=== PATIENT | female | born 1990 | race Caucasian/White ===

== ENCOUNTER → 2016-11-17 | Outpatient (CLI) | payer MEDICARE, OTHER ==
[2016-04-23 11:38] VITALS: BP 116/75
[~2016-11-17] MED LIST: ACET500T68 PO; BENZ1TAB5 PO; CA/D1TAB PO; CETI10TA16 PO; CIPR500T94 PO; CONTRAST GIVEN MC PRN; DIVA500T9 PO; ESOM40CA PO; FLUT1DIS3 IH; HALO5VIA2 IJ; HYDR25TA PO; IBUP-1007 PO; IBUP100O24 PO; IMIP25TA35 PO; INSU100I11 SQ; INSU100I13 SQ; INSU100I17 SQ; IOHEXOL 240 MG/ML 50ML VIAL. IV ONE; IOHEXOL 240 MG/ML 50ML VIAL. PO ONE; IOHEXOL 300 MG/ML 100ML VIAL. IV ONE; METF-620 PO; MIRT30TA3 PO; MONT10TA9 PO; MUPI22OI2 TP; NAPR250T2 PO; ONDA4TAB10 SL; RISP2TAB3 PO; RISP3TAB3 PO; SIMV10TA3 PO; SULF1TAB23 PO; ZOLP10TA4 PO
--- NOTE | 2016-11-17 12:17 | KCIC ---
CT scan of the abdomen and pelvis with contrast 11/17/2016 CLINICAL HISTORY: Abdominal pain with nausea and vomiting. Technique: After the oral and intravenous administration of contrast, contiguous, 5 mm axial sections were obtained through the abdomen and pelvis. 95 cc of Omnipaque 300 were administered intravenously during this examination. One or more of the following individualized dose reduction techniques were utilized for this study: 1. Automated exposure control. 2. Adjustment of the mA and/or kV according to patient size. 3. Use of iterative reconstruction technique. FINDINGS: Comparison is made to an Acute Abdominal Series dated 04/23/2016 Images through the lung bases demonstrate minimal dependent subsegmental atelectasis bilaterally. There are minimal bilateral pleural effusions, left greater than right. The liver parenchyma has a decreased attenuation consistent with mild fatty infiltration. The spleen, pancreas, adrenal glands and kidneys are within normal limits. The abdominal aorta tapers normally. Surgical clips are seen within the gallbladder fossa consistent with a cholecystectomy. Air and stool is seen throughout the colon. The appendix is well-visualized and is within normal limits. There is a small fat-containing umbilical hernia. This measures 2 cm in size. Images through the pelvis demonstrate the urinary bladder distended with urine. An oval-shaped low-attenuation structure is seen in the left adnexa which measures 3.6 cm in greatest diameter. This may represent a left ovarian cyst. Calcifications are seen within the pelvis consistent with phleboliths. No free fluid is seen. Minimal S-shaped curvature of the thoracolumbar spine is noted. IMPRESSION: 1. Minimal bilateral pleural effusions, left greater than right. 2. 3.6 cm oval-shaped low-attenuation structure is seen in the left adnexa which may represent a left ovarian cyst. This could be further evaluated by pelvic ultrasound if clinically warranted. Electronically signed by: Alex Santizo MD (11/17/2016 12:14 PM)
== END | disposition home or self-care (01) ==
LOC: KCIC CT 08:10
PROVIDERS: ATTEND Internal Medicine Gastroenterology
DX: R10.9 Unspecified abdominal pain (principal); J90 Pleural effusion, not elsewhere classified; R11.2 Nausea with vomiting, unspecified
CPT/HCPCS: 74177; 82565; Q9966; Q9967

== ENCOUNTER 2016-11-25 10:59 | Emergency (ER) | payer MEDICARE, OTHER ==
[~2016-11-25] VITALS: Ht 160 cm; Wt 78.0 kg
[~2016-11-25 10:59] MED LIST changes: -CONTRAST GIVEN MC PRN; -IOHEXOL 240 MG/ML 50ML VIAL. IV ONE; -IOHEXOL 240 MG/ML 50ML VIAL. PO ONE; -IOHEXOL 300 MG/ML 100ML VIAL. IV ONE
[2016-11-25] MEDS ORDERED: KETOROLAC TROMETHAMINE 30 MG/ML INJ. IV ONE (11:15)
[2016-11-25] MEDS ORDERED: fentaNYL PF VIAL 100 MCG/2 ML VIAL IV ONE (11:15)
[2016-11-25] MEDS ORDERED: ONDANSETRON PF 4 MG/2 ML VIAL. IV ONE (11:15)
[2016-11-25] MEDS ORDERED: IV NORMAL SALINE 1000ML BAG 1,000 ML IV ONE ×2 (11:15→14:00)
[2016-11-25 11:43] LABS: BILIRUBIN,URINE NEGATIVE (NEG); GLUCOSE,URINE NEGATIVE (NEG); NITRITE,URINE NEGATIVE (NEG); PROTEIN,URINE NEGATIVE (NEG-TRACE); UROBILINOGEN,URINE 0.2 mg/dL (0.2 mg/dL)
[2016-11-25 11:56] LABS: BACTERIA,URINE 0 /HPF (0-FEW); RBC,URINE 0 /HPF (0-2); SQUAMOUS EPITHELIAL CELL,UR FEW /LPF
--- NOTE | 2016-11-25 11:57 | PHYS DOC ---
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 Abdominal pain is diffuse and crampy possibly worse in her lower quadrants. The abdominal pain has been going on for 1 week straight where as the nausea vomiting and dysuria has been going on for the past 2 days. She had fever up to 101 at home and took Tylenol yesterday but nothing for pain this morning. Patient denies any prior abdominal surgeries. She denies any vaginal bleeding vaginal discharge. She is in no obvious distress. Review of Systems Review of Systems Constitutional: + fever, chills [] Eyes: Denies change in visual acuity, redness, or eye pain [] HENT: Denies nasal congestion or sore throat [] Respiratory: Denies cough or shortness of breath [] Cardiovascular: No additional information not addressed in HPI [] GI: + abdominal pain, nausea, vomiting, diarrhea [] : Denies dysuria or hematuria [] Musculoskeletal: + back pain. No joint pain [] Integument: Denies rash or skin lesions [] Neurologic: Denies headache, focal weakness or sensory changes [] Current Medications Current Medications Current Medications Medications (Trade) Dose Ordered Sig/Meena Start Time Stop Time Status Last Admin Dose Admin Acetaminophen/ Hydrocodone Bitart (Lortab 5/325) 2 tab 1X ONCE 11/25/16 14:00 11/25/16 14:01 DC Fentanyl Citrate (Fentanyl 2ml Vial) 50 mcg 1X ONCE 11/25/16 11:15 11/25/16 11:20 DC 11/25/16 12:16 50 MCG Iohexol (Omnipaque 300 Mg/ml) 75 ml 1X ONCE 11/25/16 12:00 11/25/16 12:01 DC Ketorolac Tromethamine (Toradol) 30 mg 1X ONCE 11/25/16 11:15 11/25/16 11:20 DC 11/25/16 12:16 30 MG Ondansetron HCl (Zofran) 8 mg 1X ONCE 11/25/16 11:15 11/25/16 11:20 DC 11/25/16 12:16 8 MG Sodium Chloride 1,000 ml @ 1,000 mls/hr 1X ONCE 11/25/16 14:00 11/25/16 14:59 Allergies Allergies Allergies Coded Allergies Type Severity Reaction Last Updated Verified Penicillins Allergy Intermediate 01/09/16 Yes iodine Allergy Intermediate 01/09/16 Yes shellfish derived Allergy Intermediate 01/09/16 Yes Physical Exam Physical Exam Constitutional: Well developed, well nourished, no acute distress, non-toxic appearance. [] HENT: Normocephalic, atraumatic, bilateral external ears normal, oropharynx moist, no oral exudates, nose normal. [] Eyes: PERRLA, EOMI, conjunctiva normal, no discharge. [] Neck: Normal range of motion, no tenderness, supple, no stridor. [] Cardiovascular:Heart rate tachycardic with regular rhythm, no murmur [] Lungs & Thorax: Bilateral breath sounds clear to auscultation [] Abdomen: Bowel sounds normal, soft, positive diffuse tenderness with no rebound or guarding, no masses, no pulsatile masses. [employer] [facility]: No abnormal bleeding or discharge but there is left adnexal tenderness to palpation. Skin: Warm, dry, no erythema, no rash. [] Back: positive left CVA tenderness. [] Extremities: No tenderness, no cyanosis, no clubbing, ROM intact, no edema. [] Neurologic: Alert and oriented X 3, normal motor function, normal sensory function, no focal deficits noted. [] Current Patient Data Vital Signs Vital Signs Date Time Temp Pulse Resp B/P (MAP) Pulse Ox O2 Delivery O2 Flow Rate FiO2 11/25/16 12:51 97 133/75 (94) 96 Room Air 11/25/16 11:07 99.2 18 99.2 Lab Values Laboratory Tests Test 11/25/16 10:26 11/25/16 11:25 11/25/16 12:00 POC Urine HCG, Qualitative Hcg negative (Negative) Urine Collection Type Void Urine Color Yellow Urine Clarity Clear Urine pH 7.0 Urine Specific [place] 1.015 Urine Protein Negative mg/dL (NEG-TRACE) Urine Glucose (UA) Negative mg/dL (NEG) Urine Ketones (Stick) Negative mg/dL (NEG) Urine Blood Negative (NEG) Urine Nitrite Negative (NEG) Urine Bilirubin Negative (NEG) Urine Urobilinogen Dipstick 0.2 mg/dL (0.2 mg/dL) Urine Leukocyte Esterase Moderate (NEG) Urine RBC 0 /HPF (0-2) Urine WBC 1-4 /HPF (0-4) Urine Squamous Epithelial Cells Few /LPF Urine Bacteria 0 /HPF (0-FEW) White Blood Count 8.5 x10^3/uL (4.0-11.0) Red Blood Count 4.75 x10^6/uL (3.50-5.40) Hemoglobin 13.1 g/dL (12.0-15.5) Hematocrit 40.1 % (36.0-47.0) Mean Corpuscular Volume 84 fL (79-100) Mean Corpuscular Hemoglobin 28 pg (25-35) Mean Corpuscular Hemoglobin Concent 33 g/dL (31-37) Red Cell Distribution Width 16.1 % (11.5-14.5) H Platelet Count 257 x10^3/uL (140-400) Neutrophils (%) (Auto) 57 % (31-73) Lymphocytes (%) (Auto) 37 % (24-48) Monocytes (%) (Auto) 5 % (0-9) Eosinophils (%) (Auto) 0 % (0-3) Basophils (%) (Auto) 1 % (0-3) Neutrophils # (Auto) 4.8 x10^3uL (1.8-7.7) Lymphocytes # (Auto) 3.2 x10^3/uL (1.0-4.8) Monocytes # (Auto) 0.4 x10^3/uL (0.0-1.1) Eosinophils # (Auto) 0.0 x10^3/uL (0.0-0.7) Basophils # (Auto) 0.1 x10^3/uL (0.0-0.2) Sodium Level 143 mmol/L (136-145) Potassium Level 4.8 mmol/L (3.5-5.1) Chloride Level 107 mmol/L (98-107) Carbon Dioxide Level 24 mmol/L (21-32) Anion Gap 12 (6-14) Blood Urea Nitrogen 8 mg/dL (7-20) Creatinine 0.6 mg/dL (0.6-1.0) Estimated GFR (Cockcroft-Gault) 120.8 BUN/Creatinine Ratio 13 (6-20) Glucose Level 96 mg/dL (70-99) Calcium Level 8.7 mg/dL (8.5-10.1) Total Bilirubin 0.2 mg/dL (0.2-1.0) Aspartate Amino Transferase (AST) 27 U/L (15-37) Alanine Aminotransferase (ALT) 39 U/L (14-59) Alkaline Phosphatase 110 U/L (46-116) Total Protein 8.0 g/dL (6.4-8.2) Albumin 4.1 g/dL (3.4-5.0) Albumin/Globulin Ratio 1.1 (1.0-1.7) Lipase 100 U/L (73-393) Laboratory Tests 11/25/16 12:00 Laboratory Tests 11/25/16 12:00 Microbiology 11/25/16 Wet Prep - Final, Complete EKG EKG [] Radiology/Procedures Radiology/Procedures Examination: CT of the abdomen pelvis without contrast History: History of bilateral lower abdominal pain Comparison: 11/17/2016 Technique: Axial CT images of the abdomen pelvis were performed without contrast. Coronal and sagittal reformats are performed PQRS Compliance Statement: One or more of the following individualized dose reduction techniques were utilized for this examination: 1. Automated exposure control 2. Adjustment of the mA and/or kV according to patient size 3. Use of iterative reconstruction technique reduction Findings: The visualized bibasal lungs grossly appears unremarkable. The evaluation of the solid organs is limited due to lack of IV contrast. The evaluation of bowel is limited lack of oral contrast. The visualized noncontrasted liver, spleen, adrenals grossly appears unremarkable. Cholecystectomy clips are identified. The visualized pancreas grossly appears unremarkable. The stomach is mildly distended. The small bowel is nondilated. No evidence of intrahepatic system calculi or hydronephrosis identified. The appendix is normal. Feces and gas noted in the colon. Urinary bladder is mildly distended. There is mild prominence the left adnexa could be distended left fallopian tube or left adnexal lesion measuring 3.6 x 3.3 cm. The urinary bladder is mildly distended. The caliber of the aorta grossly appears unremarkable. No evidence of lytic bony destructive lesion. Impression: 1. No evidence of intrarenal collecting system calculi. 2. Prominent bilobed appearance in the left adnexa measuring 3.6x 3.3 cm could be distended fallopian tube or left ovarian lesion. Ultrasound pelvis follow-up can be considered. DICTATED and SIGNED BY: MATTHIEU KIM MD DATE: 11/25/16 6054 Examination: Ultrasound pelvis History: History of abdominal pain Comparison: None available Technique: Transabdominal ultrasound examination of the pelvis. Findings: The uterus measures 5.5 x 2.5 x 3.8 cm. The endometrium is not well defined and not clearly identified. The right ovary is not visualized. In the left adnexa, there is a 5.0 x 3.7 x 5.0 cm complex cystic appearing structure which could be left adnexal or ovarian mass or lesion. Impression: 1. Limited examination as transvaginal ultrasound examination could not be performed as patient or the warehouse shipping supervisor could not consent for it. 2. There is a 5.0 x 3.7 x 5.0 cm complex cystic appearing structure identified in the left adnexa could be left adnexal or ovarian cyst or cystic lesion. Characterization is difficult. DICTATED and SIGNED BY: MATTHIEU KIM MD DATE: 11/25/16 5342 Course & Med Decision Making Course & Med Decision Making Will check labs CT treat symptoms and reassess. CT showed abnormal fallopian or ovarian mass I spoke with Dr. Wasserman and he recommended pelvic ultrasound and if hydrosalpinx lately outpatient treatment. I spoke to the radiologist as it did not mention anything about flow on the ultrasound report. I spoke to him and he said that it appears that there was flow although it was more difficult to see on transabdominal versus transvaginal but patient did not consent to transvaginal exam. But based off or he could see on the transabdominal he believes there is flow within the left ovary. I spoke to Dr. Wasserman again and he said that outpatient treatment for an ovarian cyst is reasonable at this time. She will be discharged with instruction take 400 mg of ibuprofen every 6 hours and the [place] for breakthrough pain and follow with the [employer] [facility] as an outpatient. Patient and caregiver aware and agreeable with plan. Dragon Disclaimer Dragon Disclaimer This electronic medical record was generated, in whole or in part, using a voice recognition dictation system. Departure Departure Impression: Primary Impression: Lower abdominal pain Additional Impression: Ovarian cyst Disposition: 01 HOME, SELF-CARE Condition: GOOD Referrals: LOKI WASSERMAN Jr, MD Patient Instructions: Ovarian Cyst Additional Instructions: Take 400 mg of ibuprofen every 6 hours and the [place] for breakthrough pain. Follow with a [facility] [employer] [facility] as an outpatient 2-3 days. Scripts Ondansetron (ZOFRAN ODT) 4 Mg Tab.rapdis 4 MG PO BID Y for NAUSEA/VOMITING for 10 Days, #20 TAB Prov: FARNAZ MONTILLA DO 11/25/16 Hydrocodone/Apap 5-325 (NORCO 5-325 TABLET) 1 Each Tablet 1 TAB PO PRN Q6HRS Y for PAIN, #20 TAB 0 Refills Prov: FARNAZ MONTILLA DO 11/25/16 Problem Qualifiers FARNAZ MONTILLA DO Nov 25, 2016 11:57
[2016-11-25] MEDS ORDERED: IOHEXOL 300 MG/ML 75 ML VIAL IV ONE (12:00)
[2016-11-25 12:30] LABS: BASO # 0.1 x10^3/uL (0.0-0.2); BASO % 1 % (0-3); EOS % 0 % (0-3); HEMATOCRIT 40.1 % (36.0-47.0); HEMOGLOBIN 13.1 g/dL (12.0-15.5); LYMPH # 3.2 x10^3/uL (1.0-4.8); LYMPH % 37 % (24-48); MEAN CORPUSCULAR HEMOGLOBIN 28 pg (25-35); MEAN CORPUSCULAR HGB CONC 33 g/dL (31-37); MEAN CORPUSCULAR VOLUME 84 fL (79-100); MONO % 5 % (0-9); NEUT % 57 % (31-73); PLATELET COUNT 257 x10^3/uL (140-400); RED BLOOD COUNT 4.75 x10^6/uL (3.50-5.40); RED CELL DISTRIBUTION WIDTH 16.1 % (11.5-14.5); WHITE BLOOD COUNT 8.5 x10^3/uL (4.0-11.0)
[2016-11-25 12:40] LABS: CALCIUM 8.7 mg/dL (8.5-10.1); CREATININE 0.6 mg/dL (0.6-1.0); GFR 120.8; POTASSIUM 4.8 mmol/L (3.5-5.1)
[2016-11-25 12:48] LABS: ALBUMIN 4.1 g/dL (3.4-5.0); ALBUMIN/GLOBULIN RATIO 1.1 (1.0-1.7); TOTAL BILIRUBIN 0.2 mg/dL (0.2-1.0)
--- NOTE | 2016-11-25 13:08 | RAD ---
Examination: CT of the abdomen pelvis without contrast History: History of bilateral lower abdominal pain Comparison: 11/17/2016 Technique: Axial CT images of the abdomen pelvis were performed without contrast. Coronal and sagittal reformats are performed RS Compliance Statement: One or more of the following individualized dose reduction techniques were utilized for this examination: 1. Automated exposure control 2. Adjustment of the mA and/or kV according to patient size 3. Use of iterative reconstruction technique reduction Findings: The visualized bibasal lungs grossly appears unremarkable. The evaluation of the solid organs is limited due to lack of IV contrast. The evaluation of bowel is limited lack of oral contrast. The visualized noncontrasted liver, spleen, adrenals grossly appears unremarkable. Cholecystectomy clips are identified. The visualized pancreas grossly appears unremarkable. The stomach is mildly distended. The small bowel is nondilated. No evidence of intrahepatic system calculi or hydronephrosis identified. The appendix is normal. Feces and gas noted in the colon. Urinary bladder is mildly distended. There is mild prominence the left adnexa could be distended left fallopian tube or left adnexal lesion measuring 3.6 x 3.3 cm. The urinary bladder is mildly distended. The caliber of the aorta grossly appears unremarkable. No evidence of lytic bony destructive lesion. Impression: 1. No evidence of intrarenal collecting system calculi. 2. Prominent bilobed appearance in the left adnexa measuring 3.6x 3.3 cm could be distended fallopian tube or left ovarian lesion. Ultrasound pelvis follow-up can be considered.
[2016-11-25 13:51] VITALS: BP 133/69
[2016-11-25] MEDS ORDERED: HYDROcodone/APAP 5/325MG 1 TAB TABLET PO ONE (14:00)
--- NOTE | 2016-11-25 14:30 | RAD ---
Examination: Ultrasound pelvis History: History of abdominal pain Comparison: None available Technique: Transabdominal ultrasound examination of the pelvis. Findings: The uterus measures 5.5 x 2.5 x 3.8 cm. The endometrium is not well defined and not clearly identified. The right ovary is not visualized. In the left adnexa, there is a 5.0 x 3.7 x 5.0 cm complex cystic appearing structure which could be left adnexal or ovarian mass or lesion. Impression: 1. Limited examination as transvaginal ultrasound examination could not be performed as patient or the audio production engineer could not consent for it. 2. There is a 5.0 x 3.7 x 5.0 cm complex cystic appearing structure identified in the left adnexa could be left adnexal or ovarian cyst or cystic lesion. Characterization is difficult.
[2016-11-25] MEDS ORDERED: HYDR-971 PO (14:46)
[2016-11-25] MEDS ORDERED: ONDA4TAB10 PO (14:46)
== END 2016-11-25 15:21 | disposition home or self-care (01) ==
LOC: ER 10:59
DX: N83.202 Unspecified ovarian cyst, left side (principal); E11.9 Type 2 diabetes mellitus without complications; J45.909 Unspecified asthma, uncomplicated; F31.9 Bipolar disorder, unspecified; Z87.11 Personal history of peptic ulcer disease; F25.9 Schizoaffective disorder, unspecified; Z87.442 Personal history of urinary calculi; Z90.49 Acquired absence of other specified parts of digestive tract; Z88.0 Allergy status to penicillin; Z91.041 Radiographic dye allergy status; Z91.013 Allergy to seafood
CPT/HCPCS: 36415; 74176; 76856; 80053; 81001; 81025; 83690; 85027; 87086; 87491; 87591; 96361; 96374; 96375; 99285; C1887; J1885; J2405; J3010; J7030; Q0111

== ENCOUNTER → 2017-04-02 | Outpatient (CLI) | payer MEDICARE, OTHER ==
[2017-02-12 10:49] VITALS: BP 128/87
[~2017-04-02] MED LIST changes: +BACL10TA PO; +BENZ0.5T PO; +CALC-534 PO; +CIPR250T30 PO; +DICY10CA53 PO; +DIVA125C PO; +DOCU-109 PO; +DULA1.5P SQ; +FLUT16SP NS; +GABA600T2 PO; +GLYB5TAB3 PO; +HYDR-2758 PO; +HYDR-971 PO; +INSU100V13 SQ; +KETO5DRO4 EACHEYE; +LITH300C PO; +LITH300T30 PO; +LORA2TAB PO; +MIRT45TA PO; +MONT10TA6 PO; +MULT1TAB44 PO; -NAPR250T2 PO; +NAPR250T6 PO; +NAPR500T4 PO; +OLOP2.5D EACHEYE; +ONDA4TAB10 PO; +ONDA4TAB7 PO; +PALI6TAB3 PO; +PANT40TA3 PO; +PROAIR HFA8.5 GM INH; +SIMV20TA PO; +SITA100T PO; +TOPI100T8 PO; +TRAZ150T49 PO; +VENTOLIN HFA18 GM INH; +[UNRECOGNIZED DRUG - CODE] TP
--- NOTE | 2017-04-02 14:44 | KCIC ---
PELVIS COMPLETE History: Left ovarian cyst Comparison: November 17, 2016 CT exam Findings: Multiple transabdominal sonographic images of the pelvis are submitted. Endometrium measured 0.2 cm. Uterus measured 5.9 x 3 x 4 cm. Right ovary measured 2.4 x 1.4 x 1.9 cm. Left ovary measured 4.4 x 4.8 x 3.5 cm. There is a hypoechoic lesion of left ovary on the order of 3.3 x 3 x 2 cm. There is another hypoechoic lesion of the left ovary 2 x 2.2 x 2 cm. There is normal low resistance vascularity of the ovaries bilaterally. No significant free fluid is demonstrated. Impression: 1. There are 2 left ovarian cysts, largest up to 3.3 cm. There is no free fluid. Electronically signed by: Luis Garcia MD (04/02/2017 2:41 PM) [id number]
== END | disposition home or self-care (01) ==
LOC: KCIC US 13:06
PROVIDERS: ATTEND Family Medicine
DX: N83.202 Unspecified ovarian cyst, left side (principal)
CPT/HCPCS: 76856

== ENCOUNTER → 2017-08-16 | Outpatient (CLI) | payer MEDICARE, OTHER | END | disposition home or self-care (01) | LOC: RAD 16:29 | DX: S69.92XD Unspecified injury of left wrist, hand and finger(s), subsequent encounter (principal); X58.XXXD Exposure to other specified factors, subsequent encounter | CPT/HCPCS: 73140 ==

== ENCOUNTER 2018-01-12 10:20 | Inpatient (IN) | payer MEDICARE, OTHER ==
[~2018-01-12] VITALS: Ht 157.5 cm; Wt 73.7 kg
[~2018-01-12 10:20] MED LIST changes: -BENZ0.5T PO; +BENZ0.5T32 PO; +CANA100T PO; +CHLO200T2 PO; +DIVA-53 PO; -DIVA125C PO; +DIVA125C2 PO; -DIVA500T9 PO; -IBUP100O24 PO; +IBUP100O25 PO; +INSU100C SQ; +INSU100I32 SQ; -METF-620 PO; +METF10007 PO; +NAPR-514 PO; -NAPR500T4 PO
[2018-01-12] MEDS ORDERED: ACETAMINOPHEN 500 MG TABLET PO ONE (10:45)
[2018-01-12] MEDS ORDERED: IV NORMAL SALINE 1000ML BAG 1,000 ML IV ONE ×2 (10:45→11:30)
[2018-01-12 11:02] LABS: BASO % 0 % (0-3); EOS % 0 % (0-3); HEMOGLOBIN 12.6 g/dL (12.0-15.5); LYMPH # 1.5 x10^3/uL (1.0-4.8); LYMPH % 23 % (24-48); MEAN CORPUSCULAR HEMOGLOBIN 29 pg (25-35); MEAN CORPUSCULAR HGB CONC 33 g/dL (31-37); MEAN CORPUSCULAR VOLUME 88 fL (79-100); MONO # 0.4 x10^3/uL (0.0-1.1); MONO % 6 % (0-9); NEUT # 4.6 x10^3uL (1.8-7.7); NEUT % 71 % (31-73); PLATELET COUNT 246 x10^3/uL (140-400); RED BLOOD COUNT 4.32 x10^6/uL (3.50-5.40); RED CELL DISTRIBUTION WIDTH 14.7 % (11.5-14.5); WHITE BLOOD COUNT 6.5 x10^3/uL (4.0-11.0)
[2018-01-12 11:03] LABS: BILIRUBIN,URINE NEGATIVE (NEG); CLARITY,URINE CLEAR; COLOR,URINE YELLOW; NITRITE,URINE NEGATIVE (NEG); PH,URINE 6.5; PROTEIN,URINE NEGATIVE (NEG-TRACE); UROBILINOGEN,URINE 0.2 mg/dL (0.2 mg/dL)
[2018-01-12 11:15] LABS: ALBUMIN 3.7 g/dL (3.4-5.0); ALBUMIN/GLOBULIN RATIO 1.1 (1.0-1.7); CALCIUM 8.9 mg/dL (8.5-10.1); CREATININE 0.9 mg/dL (0.6-1.0); GFR 75.1; MAGNESIUM 1.8 mg/dL (1.8-2.4); POTASSIUM 4.7 mmol/L (3.5-5.1); TOTAL BILIRUBIN 0.2 mg/dL (0.2-1.0); TOTAL PROTEIN 7.2 g/dL (6.4-8.2)
[2018-01-12 11:17] LABS: SQUAMOUS EPITHELIAL CELL,UR FEW /LPF
[2018-01-12 11:18] LABS: BACTERIA,URINE FEW /HPF (0-FEW); RBC,URINE 0 /HPF (0-2); WBC,URINE OCC /HPF (0-4)
[2018-01-12] MEDS ORDERED: INSULIN REGULAR 100 UNIT/ML 3ML VIAL. IV ONE (11:30)
[2018-01-12] MEDS ORDERED: fentaNYL PF VIAL 100 MCG/2 ML VIAL IV ONE (12:15)
--- NOTE | 2018-01-12 12:22 | RAD ---
EXAM: Chest, single view. HISTORY: Fever. COMPARISON: 04/03/2016. FINDINGS: A frontal view of the chest is obtained. There is no infiltrate, pleural effusion or pneumothorax. The heart is normal in size. IMPRESSION: No acute pulmonary finding. Electronically signed by: Nga Marc MD (01/12/2018 12:19 PM) [facility]
--- NOTE | 2018-01-12 12:55 | RAD ---
CT abdomen pelvis without intravenous contrast History: Right abdominal pain. Evaluate appendix. Comparison: CT abdomen pelvis February 11, 2017. Technique: CT of the abdomen and pelvis was performed without intravenous or oral contrast. Exposure: One or more of the following individualized dose reduction techniques were utilized for this examination: 1. Automated exposure control 2. Adjustment of the mA and/or kV according to patient size 3. Use of iterative reconstruction technique Findings: Evaluation of solid organs is limited by lack of intravenous contrast. Evaluation of enteric structures may be limited by lack of oral contrast. Liver, spleen, pancreas, and bilateral adrenal glands unremarkable. Gallbladder is absent. Inferior pole of the left kidney demonstrates 2 mm nonobstructive nephrolith. Both ureters are free of stone or obstruction. No bowel obstruction or inflammation is seen. Appendix disease is without evidence of inflammation. Urinary bladder is unremarkable. Uterus demonstrates exophytic leiomyoma. No free air or significant free fluid is seen in the abdomen or pelvis. Impression: 1. No acute abnormality identified in the abdomen or pelvis. 2. Nonobstructive left nephrolith. 3. Uterine leiomyoma. Electronically signed by: Dallin Engle MD (01/12/2018 12:52 PM) [facility] [place]
[2018-01-12] MEDS: IV NORMAL SALINE 1000ML BAG 1,000 ML IV SCH ×2 (13:45→19:39)
[2018-01-12 13:57] VITALS: BP 111/77
[2018-01-12 15:00] VITALS: BP 121/81
[2018-01-12] MEDS ORDERED: CICL6.6S TP (15:07)
[2018-01-12] MEDS ORDERED: GLIM2TAB2 PO (15:07)
[2018-01-12] MEDS ORDERED: SOD28CRE TP (15:07)
[2018-01-12] MEDS ORDERED: VENTOLIN HFA18 GM INH (15:07)
[2018-01-12] MEDS ORDERED: CHLO100T6 PO (15:07)
[2018-01-12] MEDS ORDERED: POLY17PO29 PO (15:07)
[2018-01-12] MEDS ORDERED: OMEG1CAP6 PO ×2 (15:07)
[2018-01-12] MEDS ORDERED: HYDROcodone/APAP 7.5/325MG 1 TAB TABLET PO PRN ×2 (15:30→15:45)
--- NOTE | 2018-01-12 17:35 | PHYS DOC ---
Past Medical History Past Medical History: Asthma, Bipolar, Diabetes-Type I, Kidney Stone, P.U.D., Other Additional Past Medical Histor: schizoaffective disorder, OVARIAN CYSTS Past Surgical History: Cholecystectomy, Other Additional Past Surgical Histo: kidney stone , pen removal from intestines Alcohol Use: None Drug Use: None Adult General Chief Complaint Chief Complaint: HYPERGLYCEMIA HPI HPI Patient is a 27 year old brought in from a assisted with a chief complaint of high blood sugar was 515 despite insulin regimen which included 80 mg of long- term insulin in the morning as well as sliding scale they do not have the MAR with him Patient states that she has had subjective fevers sore throat dry cough as well as some right-sided abdominal pain for the last week apparently abdominal pain is much worse over the last day she is nauseous denies any dysuria she is just not feeling well feels weak. Review of Systems Review of Systems Eyes: Denies change in visual acuity, redness, or eye pain [] HENT: Denies nasal congestion or sore throat [] Respiratory: Denies cough or shortness of breath [] Cardiovascular: No additional information not addressed in HPI [] GI: hpi Musculoskeletal: Denies back pain or joint pain [] All other systems were reviewed and found to be within normal limits, except as documented in this note. Current Medications Current Medications Current Medications Medications (Trade) Dose Ordered Sig/Meena Start Time Stop Time Status Last Admin Dose Admin Acetaminophen (Tylenol) 1,000 mg 1X ONCE 01/12/18 10:45 01/12/18 10:46 DC 01/12/18 11:07 1,000 MG Fentanyl Citrate (Fentanyl 2ml Vial) 50 mcg 1X ONCE 01/12/18 12:15 01/12/18 12:16 DC 01/12/18 12:06 50 MCG Insulin Human Regular (HumuLIN R VIAL) 10 unit 1X ONCE 01/12/18 11:30 01/12/18 11:31 DC 01/12/18 11:30 10 UNIT Sodium Chloride 1,000 ml @ 1,000 mls/hr 1X ONCE 01/12/18 11:30 01/12/18 12:29 DC 01/12/18 12:06 1,000 MLS/HR Allergies Allergies Allergies Coded Allergies Type Severity Reaction Last Updated Verified Penicillins Allergy Intermediate 01/09/16 Yes iodine Allergy Intermediate 01/09/16 Yes shellfish derived Allergy Intermediate 01/09/16 Yes Physical Exam Physical Exam Constitutional: Well developed, well nourished, no acute distress, non-toxic appearance. [] HENT: Normocephalic, atraumatic, bilateral external ears normal, oropharynx dryt , no oral exudates, nose normal. [] Eyes: PERRLA, EOMI, conjunctiva normal, no discharge. [] Neck: Normal range of motion, no tenderness, supple, no stridor. [] Cardiovascular:Heart rate regular rhythm, no murmur [] Lungs & Thorax: Bilateral breath sounds clear to auscultation [] Abdomen: Bowel sounds normal, soft, rlq and right cva tenderness, no masses, no pulsatile masses. [] Skin: Warm, dry, no erythema, no rash. [] Back: right cva ttp Extremities: No tenderness, no cyanosis, no clubbing, ROM intact, no edema. [] Neurologic: Alert and oriented X 3, normal motor function, normal sensory function, no focal deficits noted. [] Psychologic: abnormal affect, blunted. Current Patient Data Vital Signs Vital Signs Date Time Temp Pulse Resp B/P (MAP) Pulse Ox O2 Delivery O2 Flow Rate FiO2 01/12/18 12:06 18 96 Room Air 01/12/18 12:00 110 144/91 (108) 01/12/18 10:56 99.3 99.3 Lab Values Laboratory Tests Test 01/12/18 10:20 01/12/18 10:55 Urine Collection Type Unknown Urine Color Yellow Urine Clarity Clear Urine pH 6.5 Urine Specific [place] 1.025 Urine Protein Negative mg/dL (NEG-TRACE) Urine Glucose (UA) >=1000 mg/dL (NEG) Urine Ketones (Stick) Negative mg/dL (NEG) Urine Blood Negative (NEG) Urine Nitrite Negative (NEG) Urine Bilirubin Negative (NEG) Urine Urobilinogen Dipstick 0.2 mg/dL (0.2 mg/dL) Urine Leukocyte Esterase Negative (NEG) Urine RBC 0 /HPF (0-2) Urine WBC Occ /HPF (0-4) Urine Squamous Epithelial Cells Few /LPF Urine Bacteria Few /HPF (0-FEW) White Blood Count 6.5 x10^3/uL (4.0-11.0) Red Blood Count 4.32 x10^6/uL (3.50-5.40) Hemoglobin 12.6 g/dL (12.0-15.5) Hematocrit 38.0 % (36.0-47.0) Mean Corpuscular Volume 88 fL (79-100) Mean Corpuscular Hemoglobin 29 pg (25-35) Mean Corpuscular Hemoglobin Concent 33 g/dL (31-37) Red Cell Distribution Width 14.7 % (11.5-14.5) H Platelet Count 246 x10^3/uL (140-400) Neutrophils (%) (Auto) 71 % (31-73) Lymphocytes (%) (Auto) 23 % (24-48) L Monocytes (%) (Auto) 6 % (0-9) Eosinophils (%) (Auto) 0 % (0-3) Basophils (%) (Auto) 0 % (0-3) Neutrophils # (Auto) 4.6 x10^3uL (1.8-7.7) Lymphocytes # (Auto) 1.5 x10^3/uL (1.0-4.8) Monocytes # (Auto) 0.4 x10^3/uL (0.0-1.1) Eosinophils # (Auto) 0.0 x10^3/uL (0.0-0.7) Basophils # (Auto) 0.0 x10^3/uL (0.0-0.2) Maternal Serum HCG Beta Subunit < 1 mIU/mL (0-5) Sodium Level 136 mmol/L (136-145) Potassium Level 4.7 mmol/L (3.5-5.1) Chloride Level 105 mmol/L (98-107) Carbon Dioxide Level 18 mmol/L (21-32) L Anion Gap 13 (6-14) Blood Urea Nitrogen 13 mg/dL (7-20) Creatinine 0.9 mg/dL (0.6-1.0) Estimated GFR (Cockcroft-Gault) 75.1 BUN/Creatinine Ratio 14 (6-20) Glucose Level 540 mg/dL (70-99) *H Calcium Level 8.9 mg/dL (8.5-10.1) Magnesium Level 1.8 mg/dL (1.8-2.4) Total Bilirubin 0.2 mg/dL (0.2-1.0) Aspartate Amino Transferase (AST) 16 U/L (15-37) Alanine Aminotransferase (ALT) 43 U/L (14-59) Alkaline Phosphatase 96 U/L (46-116) Total Protein 7.2 g/dL (6.4-8.2) Albumin 3.7 g/dL (3.4-5.0) Albumin/Globulin Ratio 1.1 (1.0-1.7) Lipase 264 U/L (73-393) Laboratory Tests 01/12/18 10:55 Laboratory Tests 01/12/18 10:55 EKG EKG [] Radiology/Procedures Radiology/Procedures [] Impressions: Evaluation of solid organs is limited by lack of intravenous contrast. Evaluation of enteric structures may be limited by lack of oral contrast. Liver, spleen, pancreas, and bilateral adrenal glands unremarkable. Gallbladder is absent. Inferior pole of the left kidney demonstrates 2 mm nonobstructive nephrolith. Both ureters are free of stone or obstruction. No bowel obstruction or inflammation is seen. Appendix disease is without evidence of inflammation. Urinary bladder is unremarkable. Uterus demonstrates exophytic leiomyoma. No free air or significant free fluid is seen in the abdomen or pelvis. Impression: 1. No acute abnormality identified in the abdomen or pelvis. 2. Nonobstructive left nephrolith. 3. Uterine leiomyoma. Electronically signed by: Dallin Engle MD (01/12/2018 12:52 PM) [facility] [place] Course & Med Decision Making Course & Med Decision Making Pertinent Labs and Imaging studies reviewed. (See chart for details) []27-year-old female presenting with poorly controlled blood sugars. She does live in some sort of a long-term. She was tachycardic to the 130s with low- grade fever we did an infectious workup and did not find a clear etiology perhaps she has a viral syndrome I have not yet seen a rapid strep. CT scan was negative for appendicitis she did have some right lower quadrant tenderness on examination but this is also happened to her in the past with hyperglycemia. Due to her social situation as well as the tachycardia and arrival of opted to admit her to the hospital for serial blood sugars and monitoring I spoke with Dr. carlton plan to admit. Jamel Disclaimer Dragon Disclaimer This electronic medical record was generated, in whole or in part, using a voice recognition dictation system. Departure Departure Impression: Primary Impression: Hyperglycemia Disposition: ADMITTED INPATIENT Admitting Physician: Other Condition: STABLE Referrals: ROBERTO WARREN MD (PCP) SRINIVASA LEZAMA MD Jan 12, 2018 17:35
[2018-01-12] MEDS: FLUTICASONE 50MCG/NASAL SPRAY 16GM BOTTLE. NS SCH (18:13)
[2018-01-12] MEDS: GLIMEPIRIDE 2 MG TABLET. PO SCH (18:13)
[2018-01-12] MEDS: CETIRIZINE HCL 10 MG TABLET. PO SCH (18:14)
[2018-01-12] MEDS: BACLOFEN 10 MG TABLET. PO SCH (18:14)
[2018-01-12] MEDS ORDERED: DICYCLOMINE HCL 10 MG CAPSULE PO PRN (18:15)
[2018-01-12] MEDS: ACETAMINOPHEN 500 MG TABLET PO PRN (18:37)
[2018-01-12 19:20] VITALS: BP 149/96
[2018-01-12] MEDS: OMEGA-3 FATTY ACIDS/FISH OIL 1,000 MG CAPSULE. PO SCH (20:18)
[2018-01-12] MEDS: GABAPENTIN 400 MG CAPSULE. PO SCH (20:18)
[2018-01-12] MEDS: TOPIRAMATE 100 MG TABLET. PO SCH (20:18)
[2018-01-12] MEDS: ALBUTEROL SULFATE 2.5 MG/3 ML NEBU. NEB SCH (20:42)
[2018-01-12] MEDS: BUDESONIDE 0.5 MG/2 ML NEBU. NEB SCH (20:42)
[2018-01-12] MEDS ORDERED: VITAMIN E TP SCH (21:00)
[2018-01-12] MEDS: AMMONIUM LACTATE 12% TOPICAL LOTION 226GM BOTTLE. TP SCH (21:00)
[2018-01-12] MEDS ORDERED: MONTELUKAST SODIUM 10 MG TABLET. PO SCH (21:00)
[2018-01-12] MEDS ORDERED: NON FORMULARY ITEM (Fluticasone/Salmeterol (Advair 250-50 Diskus) 1 INH) IH SCH (21:00)
[2018-01-12] MEDS ORDERED: [UNRECOGNIZED DRUG - OTHER] TP SCH (21:00)
[2018-01-12] MEDS ORDERED: LORazepam 1 MG TABLET PO SCH (21:00)
[2018-01-12] MEDS ORDERED: LITHIUM CARBONATE ER 300 MG TABLET.ER PO SCH (21:00)
[2018-01-12] MEDS ORDERED: traZODone 100 MG TABLET. PO SCH (21:00)
[2018-01-12] MEDS ORDERED: MIRTAZAPINE 15 MG TABLET PO SCH (21:00)
[2018-01-12] MEDS ORDERED: INSULIN GLARGINE 300 UNITS/3 ML INSULN.PEN. SQ SCH (21:00)
[2018-01-12] MEDS ORDERED: ENOXAPARIN 40 MG/0.4 ML SYRINGE. SQ SCH (21:00)
[2018-01-12] MEDS ORDERED: SIMVASTATIN 20 MG TABLET PO SCH (21:00)
[2018-01-12] MEDS ORDERED: UREA TP SCH (21:00)
[2018-01-12] MEDS: KETOTIFEN FUMARATE 0.025% OPHTH SOLUTION BOTTLE. OU SCH (22:00)
[2018-01-12] MEDS: chlorproMAZINE 25 MG TABLET PO SCH (22:38)
[2018-01-12 23:17] VITALS: BP 136/88
[2018-01-13] MEDS: ACETAMINOPHEN 500 MG TABLET PO PRN ×2 (00:56→08:14)
[2018-01-13] MEDS: IV NORMAL SALINE 1000ML BAG 1,000 ML IV SCH ×2 (02:19→10:36)
[2018-01-13 03:40] VITALS: BP 140/92
[2018-01-13 05:40] LABS: BASO % 0 % (0-3); EOS # 0.1 x10^3/uL (0.0-0.7); EOS % 1 % (0-3); HEMATOCRIT 34.1 % (36.0-47.0); HEMOGLOBIN 11.5 g/dL (12.0-15.5); LYMPH # 2.5 x10^3/uL (1.0-4.8); LYMPH % 38 % (24-48); MEAN CORPUSCULAR HEMOGLOBIN 30 pg (25-35); MEAN CORPUSCULAR HGB CONC 34 g/dL (31-37); MEAN CORPUSCULAR VOLUME 88 fL (79-100); MONO # 0.3 x10^3/uL (0.0-1.1); MONO % 5 % (0-9); NEUT # 3.6 x10^3uL (1.8-7.7); NEUT % 55 % (31-73); PLATELET COUNT 219 x10^3/uL (140-400); RED BLOOD COUNT 3.87 x10^6/uL (3.50-5.40); RED CELL DISTRIBUTION WIDTH 14.2 % (11.5-14.5); WHITE BLOOD COUNT 6.4 x10^3/uL (4.0-11.0)
[2018-01-13 06:00] LABS: CREATININE 0.6 mg/dL (0.6-1.0); GFR 119.9
[2018-01-13] MEDS: KETOTIFEN FUMARATE 0.025% OPHTH SOLUTION BOTTLE. OU SCH (06:00)
[2018-01-13 07:15] VITALS: BP 136/92
[2018-01-13] MEDS: ALBUTEROL SULFATE 2.5 MG/3 ML NEBU. NEB SCH ×2 (07:48→11:40)
[2018-01-13] MEDS: BUDESONIDE 0.5 MG/2 ML NEBU. NEB SCH (07:56)
[2018-01-13] MEDS ORDERED: CALCIUM CARB/VIT D3 500/200 TABLET. PO SCH (08:00)
[2018-01-13] MEDS: OMEGA-3 FATTY ACIDS/FISH OIL 1,000 MG CAPSULE. PO SCH (08:13)
[2018-01-13] MEDS: TOPIRAMATE 100 MG TABLET. PO SCH (08:14)
[2018-01-13] MEDS: GABAPENTIN 400 MG CAPSULE. PO SCH (08:14)
[2018-01-13] MEDS: GLIMEPIRIDE 2 MG TABLET. PO SCH (08:14)
[2018-01-13] MEDS: BACLOFEN 10 MG TABLET. PO SCH (08:14)
[2018-01-13] MEDS: CETIRIZINE HCL 10 MG TABLET. PO SCH (08:14)
[2018-01-13] MEDS: AMMONIUM LACTATE 12% TOPICAL LOTION 226GM BOTTLE. TP SCH (08:14)
[2018-01-13] MEDS: FLUTICASONE 50MCG/NASAL SPRAY 16GM BOTTLE. NS SCH (08:15)
[2018-01-13] MEDS ORDERED: POLYETHYLENE GLYCOL 3350 17 GM PACKET. PO SCH (09:00)
[2018-01-13] MEDS ORDERED: MULTIVITAMIN with MINERAL TABLET. PO SCH (09:00)
--- NOTE | 2018-01-13 10:37 | PDOC ---
PROGRESS NOTES Subjective Subjective Patient denies abdominal pain or nausea. Objective Objective Vital Signs Date Time Temp Pulse Resp B/P (MAP) Pulse Ox O2 Delivery O2 Flow Rate FiO2 01/13/18 07:56 96 Room Air 01/13/18 07:15 99.0 106 18 136/92 (107) 99.0 Intake and Output 01/13/18 07:00 Intake Total 2350 ml Balance 2350 ml Intake Oral 1350 ml IV Total 1000 ml # Voids 10 # Bowel Movements 2 Physical Exam Abdomen: Normal bowel sounds, Soft, No tenderness Heart: Regular rate Extremities: No edema General: Alert, Oriented X3, No acute distress Lungs: Clear to auscultation Plan Plan of Care 1. DM2 with hyperglycemia - blood sugars much improved, home on her usual meds per DM clinic. 2. Abdominal pain and malaise - afebrile. CT abdomen and pelvis WNL. Patient eating 100% of meal and exam benign. Home today. 3. bipolar mood disorder - at baseline, continue meds per Psychiatry. 4. developmental disability - stable. Can lead to some attention-seeking behavior at times, continue supportive care. Comment Review of Relevant I have reviewed the following items wilbur (where applicable) has been applied. Labs Laboratory Tests Test 01/12/18 10:20 01/12/18 10:32 01/12/18 10:55 01/12/18 13:48 Urine Collection Type Unknown Urine Color Yellow Urine Clarity Clear Urine pH 6.5 Urine Specific [place] 1.025 Urine Protein Negative mg/dL (NEG-TRACE) Urine Glucose (UA) >=1000 mg/dL (NEG) Urine Ketones (Stick) Negative mg/dL (NEG) Urine Blood Negative (NEG) Urine Nitrite Negative (NEG) Urine Bilirubin Negative (NEG) Urine Urobilinogen Dipstick 0.2 mg/dL (0.2 mg/dL) Urine Leukocyte Esterase Negative (NEG) Urine RBC 0 /HPF (0-2) Urine WBC Occ /HPF (0-4) Urine Squamous Epithelial Cells Few /LPF Urine Bacteria Few /HPF (0-FEW) Glucose (Fingerstick) 539 mg/dL (70-99) 126 mg/dL (70-99) White Blood Count 6.5 x10^3/uL (4.0-11.0) Red Blood Count 4.32 x10^6/uL (3.50-5.40) Hemoglobin 12.6 g/dL (12.0-15.5) Hematocrit 38.0 % (36.0-47.0) Mean Corpuscular Volume 88 fL (79-100) Mean Corpuscular Hemoglobin 29 pg (25-35) Mean Corpuscular Hemoglobin Concent 33 g/dL (31-37) Red Cell Distribution Width 14.7 % (11.5-14.5) Platelet Count 246 x10^3/uL (140-400) Neutrophils (%) (Auto) 71 % (31-73) Lymphocytes (%) (Auto) 23 % (24-48) Monocytes (%) (Auto) 6 % (0-9) Eosinophils (%) (Auto) 0 % (0-3) Basophils (%) (Auto) 0 % (0-3) Neutrophils # (Auto) 4.6 x10^3uL (1.8-7.7) Lymphocytes # (Auto) 1.5 x10^3/uL (1.0-4.8) Monocytes # (Auto) 0.4 x10^3/uL (0.0-1.1) Eosinophils # (Auto) 0.0 x10^3/uL (0.0-0.7) Basophils # (Auto) 0.0 x10^3/uL (0.0-0.2) Maternal Serum HCG Beta Subunit < 1 mIU/mL (0-5) Sodium Level 136 mmol/L (136-145) Potassium Level 4.7 mmol/L (3.5-5.1) Chloride Level 105 mmol/L (98-107) Carbon Dioxide Level 18 mmol/L (21-32) Anion Gap 13 (6-14) Blood Urea Nitrogen 13 mg/dL (7-20) Creatinine 0.9 mg/dL (0.6-1.0) Estimated GFR (Cockcroft-Gault) 75.1 BUN/Creatinine Ratio 14 (6-20) Glucose Level 540 mg/dL (70-99) Calcium Level 8.9 mg/dL (8.5-10.1) Magnesium Level 1.8 mg/dL (1.8-2.4) Total Bilirubin 0.2 mg/dL (0.2-1.0) Aspartate Amino Transf (AST/SGOT) 16 U/L (15-37) Alanine Aminotransferase (ALT/SGPT) 43 U/L (14-59) Alkaline Phosphatase 96 U/L (46-116) Total Protein 7.2 g/dL (6.4-8.2) Albumin 3.7 g/dL (3.4-5.0) Albumin/Globulin Ratio 1.1 (1.0-1.7) Lipase 264 U/L (73-393) Test 01/12/18 16:51 01/12/18 20:53 01/13/18 04:00 01/13/18 07:16 Glucose (Fingerstick) 224 mg/dL (70-99) 186 mg/dL (70-99) 211 mg/dL (70-99) White Blood Count 6.4 x10^3/uL (4.0-11.0) Red Blood Count 3.87 x10^6/uL (3.50-5.40) Hemoglobin 11.5 g/dL (12.0-15.5) Hematocrit 34.1 % (36.0-47.0) Mean Corpuscular Volume 88 fL (79-100) Mean Corpuscular Hemoglobin 30 pg (25-35) Mean Corpuscular Hemoglobin Concent 34 g/dL (31-37) Red Cell Distribution Width 14.2 % (11.5-14.5) Platelet Count 219 x10^3/uL (140-400) Neutrophils (%) (Auto) 55 % (31-73) Lymphocytes (%) (Auto) 38 % (24-48) Monocytes (%) (Auto) 5 % (0-9) Eosinophils (%) (Auto) 1 % (0-3) Basophils (%) (Auto) 0 % (0-3) Neutrophils # (Auto) 3.6 x10^3uL (1.8-7.7) Lymphocytes # (Auto) 2.5 x10^3/uL (1.0-4.8) Monocytes # (Auto) 0.3 x10^3/uL (0.0-1.1) Eosinophils # (Auto) 0.1 x10^3/uL (0.0-0.7) Basophils # (Auto) 0.0 x10^3/uL (0.0-0.2) Sodium Level 137 mmol/L (136-145) Potassium Level 4.0 mmol/L (3.5-5.1) Chloride Level 108 mmol/L (98-107) Carbon Dioxide Level 22 mmol/L (21-32) Anion Gap 7 (6-14) Blood Urea Nitrogen 9 mg/dL (7-20) Creatinine 0.6 mg/dL (0.6-1.0) Estimated GFR (Cockcroft-Gault) 119.9 Glucose Level 204 mg/dL (70-99) Calcium Level 8.0 mg/dL (8.5-10.1) Laboratory Tests Test 01/12/18 10:55 01/12/18 13:48 01/12/18 16:51 01/12/18 20:53 White Blood Count 6.5 x10^3/uL (4.0-11.0) Red Blood Count 4.32 x10^6/uL (3.50-5.40) Hemoglobin 12.6 g/dL (12.0-15.5) Hematocrit 38.0 % (36.0-47.0) Mean Corpuscular Volume 88 fL (79-100) Mean Corpuscular Hemoglobin 29 pg (25-35) Mean Corpuscular Hemoglobin Concent 33 g/dL (31-37) Red Cell Distribution Width 14.7 % (11.5-14.5) Platelet Count 246 x10^3/uL (140-400) Neutrophils (%) (Auto) 71 % (31-73) Lymphocytes (%) (Auto) 23 % (24-48) Monocytes (%) (Auto) 6 % (0-9) Eosinophils (%) (Auto) 0 % (0-3) Basophils (%) (Auto) 0 % (0-3) Neutrophils # (Auto) 4.6 x10^3uL (1.8-7.7) Lymphocytes # (Auto) 1.5 x10^3/uL (1.0-4.8) Monocytes # (Auto) 0.4 x10^3/uL (0.0-1.1) Eosinophils # (Auto) 0.0 x10^3/uL (0.0-0.7) Basophils # (Auto) 0.0 x10^3/uL (0.0-0.2) Maternal Serum HCG Beta Subunit < 1 mIU/mL (0-5) Sodium Level 136 mmol/L (136-145) Potassium Level 4.7 mmol/L (3.5-5.1) Chloride Level 105 mmol/L (98-107) Carbon Dioxide Level 18 mmol/L (21-32) Anion Gap 13 (6-14) Blood Urea Nitrogen 13 mg/dL (7-20) Creatinine 0.9 mg/dL (0.6-1.0) Estimated GFR (Cockcroft-Gault) 75.1 BUN/Creatinine Ratio 14 (6-20) Glucose Level 540 mg/dL (70-99) Calcium Level 8.9 mg/dL (8.5-10.1) Magnesium Level 1.8 mg/dL (1.8-2.4) Total Bilirubin 0.2 mg/dL (0.2-1.0) Aspartate Amino Transf (AST/SGOT) 16 U/L (15-37) Alanine Aminotransferase (ALT/SGPT) 43 U/L (14-59) Alkaline Phosphatase 96 U/L (46-116) Total Protein 7.2 g/dL (6.4-8.2) Albumin 3.7 g/dL (3.4-5.0) Albumin/Globulin Ratio 1.1 (1.0-1.7) Lipase 264 U/L (73-393) Glucose (Fingerstick) 126 mg/dL (70-99) 224 mg/dL (70-99) 186 mg/dL (70-99) Test 01/13/18 04:00 01/13/18 07:16 White Blood Count 6.4 x10^3/uL (4.0-11.0) Red Blood Count 3.87 x10^6/uL (3.50-5.40) Hemoglobin 11.5 g/dL (12.0-15.5) Hematocrit 34.1 % (36.0-47.0) Mean Corpuscular Volume 88 fL (79-100) Mean Corpuscular Hemoglobin 30 pg (25-35) Mean Corpuscular Hemoglobin Concent 34 g/dL (31-37) Red Cell Distribution Width 14.2 % (11.5-14.5) Platelet Count 219 x10^3/uL (140-400) Neutrophils (%) (Auto) 55 % (31-73) Lymphocytes (%) (Auto) 38 % (24-48) Monocytes (%) (Auto) 5 % (0-9) Eosinophils (%) (Auto) 1 % (0-3) Basophils (%) (Auto) 0 % (0-3) Neutrophils # (Auto) 3.6 x10^3uL (1.8-7.7) Lymphocytes # (Auto) 2.5 x10^3/uL (1.0-4.8) Monocytes # (Auto) 0.3 x10^3/uL (0.0-1.1) Eosinophils # (Auto) 0.1 x10^3/uL (0.0-0.7) Basophils # (Auto) 0.0 x10^3/uL (0.0-0.2) Sodium Level 137 mmol/L (136-145) Potassium Level 4.0 mmol/L (3.5-5.1) Chloride Level 108 mmol/L (98-107) Carbon Dioxide Level 22 mmol/L (21-32) Anion Gap 7 (6-14) Blood Urea Nitrogen 9 mg/dL (7-20) Creatinine 0.6 mg/dL (0.6-1.0) Estimated GFR (Cockcroft-Gault) 119.9 Glucose Level 204 mg/dL (70-99) Calcium Level 8.0 mg/dL (8.5-10.1) Glucose (Fingerstick) 211 mg/dL (70-99) Medications Current Medications Sodium Chloride 1,000 ml @ 1,000 mls/hr 1X ONCE IV Last administered on 11:07; Start 01/12/18 at 10:45; Stop 01/12/18 at 11:44; Status DC Acetaminophen (Tylenol) 1,000 mg 1X ONCE PO Last administered on 01/12/18at 11: 07; Start 01/12/18 at 10:45; Stop 01/12/18 at 10:46; Status DC Insulin Human Regular (HumuLIN R VIAL) 10 unit 1X ONCE IV Last administered on 01/12/18at 11:30; Start 01/12/18 at 11:30; Stop 01/12/18 at 11:31; Status DC Sodium Chloride 1,000 ml @ 1,000 mls/hr 1X ONCE IV Last administered on at 12:06; Start 01/12/18 at 11:30; Stop 01/12/18 at 12:29; Status DC Fentanyl Citrate (Fentanyl 2ml Vial) 50 mcg 1X ONCE IV Last administered on 12:06; Start 01/12/18 at 12:15; Stop 01/12/18 at 12:16; Status DC Sodium Chloride 1,000 ml @ 150 mls/hr Q6H40M IV Last administered on 02:19; Start 01/12/18 at 12:59; Stop 01/13/18 at 12:58 Acetaminophen/ Hydrocodone Bitart (Lortab 7.5/325) 1 tab PRN Q4HRS PRN PO PAIN Last administered on 01/12/18at 15:38; Start 01/12/18 at 15:30; Stop 01/12/18 at 18:33; Status DC Acetaminophen/ Hydrocodone Bitart (Lortab 7.5/325) 2 tab PRN Q4HRS PRN PO PAIN ; Start 01/12/18 at 15:45; Stop 01/12/18 at 18:33; Status DC Baclofen (Lioresal) 10 mg DAILY PO Last administered on 01/13/18 08:14; Start 01/12/18 at 18:30 Cetirizine HCl (ZyrTEC) 10 mg DAILY PO Last administered on 01/13/18 08:14; Start 01/12/18 at 18:30 Dicyclomine HCl (Bentyl) 10 mg TIDAC PRN PO ABDOMINAL PAIN; Start 01/12/18 at 18:15 Fluticasone Propionate (Flonase) 2 spray DAILY NS Last administered on 08:15; Start 01/12/18 at 18:30 Glimepiride (Amaryl) 2 mg DAILY PO Last administered on 01/13/18 08:14; Start 01/12/18 at 18:30 Insulin Glargine (Lantus) 100 units QHS SQ Last administered on 01/12/18 22:43 ; Start 01/12/18 at 21:00 Fish Oil (Fish Oil) 1,000 mg BID PO Last administered on 01/13/18 08:13; Start 01/12/18 at 21:00 Calcium/Vitamin D (Oscal D 500mg/ 200uts) 2 tab DAILYWBKFT PO Last administered on 01/13/18 08:14; Start 01/13/18 at 08:00 Chlorpromazine HCl (Thorazine) 200 mg TID PO Last administered on 01/12/18 22: 38; Start 01/12/18 at 21:00 Non-Formulary Medication (Dulaglutide (Trulicity)) 1.5 mg WEEKLY SQ ; Start 01/19 at 09:00; Status UNV Non-Formulary Medication (Fluticasone/ Salmeterol (Advair 250-50 Diskus)) 1 inh BID IH ; Start 01/12/18 at 21:00; Status UNV Gabapentin (Neurontin) 1,200 mg TID PO Last administered on 01/13/18 08:14; Start 01/12/18 at 21:00 Ketotifen Fumarate (Zaditor) 1 drop Q8HRS OU Last administered on 01/12/18 22: 00; Start 01/12/18 at 22:00 [place] Carbonate (Lithobid) 600 mg QHS PO Last administered on 01/12/18 20:16 ; Start 01/12/18 at 21:00 Lorazepam (Ativan) 2 mg QHS PO Last administered on 01/12/18 20:18; Start at 21:00 Metformin HCl (Glucophage) 1,000 mg BIDWMEALS PO Last administered on 08:14; Start 01/12/18 at 18:30 Mirtazapine (Remeron) 30 mg QHS PO Last administered on 01/12/18 20:18; Start 01/12/18 at 21:00 Montelukast Sodium (Singulair) 10 mg QHS PO Last administered on 01/12/18 21: 00; Start 01/12/18 at 21:00 Multivitamins (Thera M Plus) 1 tab DAILY PO Last administered on 01/13/18 08: 14; Start 01/13/18 at 09:00 Polyethylene Glycol (miraLAX PACKET) 17 gm DAILY PO Last administered on 08:13; Start 01/13/18 at 09:00 Simvastatin (Zocor) 20 mg HS PO Last administered on 01/12/18 20:18; Start at 21:00 Lactic Acid (Lac-Hydrin) 1 bhakti BID TP Last administered on 01/13/18 08:14; Start 01/12/18 at 21:00 Topiramate (Topamax) 100 mg TID PO Last administered on 01/13/18 08:14; Start 01/12/18 at 21:00 Trazodone HCl (Desyrel) 300 mg QHS PO Last administered on 01/12/18 20:17; Start 01/12/18 at 21:00 Non-Formulary Medication (Urea/Allantoin/ Vit E Acetate (Flexitol [place] Cream)) 56 gm BID TP ; Start 01/12/18 at 21:00; Status UNV Enoxaparin Sodium (Lovenox 40mg Syringe) 40 mg Q24H SQ Last administered on 20:19; Start 01/12/18 at 21:00 Albuterol Sulfate (Ventolin Neb Soln) 2.5 mg RTQID NEB Last administered on 07:48; Start 01/12/18 at 20:00 Budesonide (Pulmicort) 0.5 mg RTBID NEB Last administered on 01/13/18 07:56; Start 01/12/18 at 20:00 Acetaminophen (Tylenol) 1,000 mg PRN Q6HRS PRN PO PAIN Last administered on 08:14; Start 01/12/18 at 18:45 Active Scripts Active Bentyl (Dicyclomine Hcl) 10 Mg Capsule 10 Mg PO TIDAC PRN 30 Days Reported Ventolin Hfa Inhaler (Albuterol Sulfate) 18 Gm Hfa.aer.ad 2 Puff INH PRN Miralax (Polyethylene Glycol 3350) 17 Gm Powd.pack 1 Packet PO DAILY Fish Oil 1,000 Mg Capsule ([place]-3 Fatty Acids/Fish Oil) 1 Each Capsule 1 Each PO BID Fish Oil 1,000 Mg Capsule ([place]-3 Fatty Acids/Fish Oil) 1 Each Capsule 1 Each PO DAILY Glimepiride 2 Mg Tablet 1 Tab PO DAILY Penlac (Ciclopirox) 6.6 Ml Solution 6.6 Ml TP DAILY Amlactin Ultra Body Cream (Sod Lactate/Amm Lact/Pot Lact) 28 Gm Cream..g. 28 Gm TP BID Chlorpromazine Hcl 100 Mg Tablet 100 Mg PO DAILY Chlorpromazine Hcl 200 Mg Tablet 200 Mg PO TID Basaglar Kwikpen U-100 (Insulin Glargine,Hum.rec.anlog) 100 Unit/1 Ml Insuln.pen 100 Unit SQ EVERY AM Ventolin Hfa Inhaler (Albuterol Sulfate) 18 Gm Hfa.aer.ad 2 Puff INH Q4HRS Trulicity (Dulaglutide) 1.5 Mg/0.5 Ml Pen.injctr 1.5 Mg SQ WEEKLY Trazodone Hcl 150 Mg Tablet 2 Tab PO QHS Topiramate 100 Mg Tablet 1 Tab PO TID Mirtazapine 30 Mg Tablet 1 Tab PO QHS Metformin Hcl 1,000 Mg Tablet 1,000 Mg PO BIDWMEALS Lorazepam 2 Mg Tablet 1 Tab PO QHS [place] Carbonate 300 Mg Tablet.er 2 Tab PO QHS Zaditor (Ketotifen Fumarate) 5 Ml Drops 1 Drop EACHEYE Q8HRS Gabapentin 600 Mg Tablet 1,200 Mg PO TID Fluticasone Propionate Nasal [place] (Fluticasone Propionate) 16 Gm [place].susp 2 [place] NS DAILY Flexitol [place] Cream (Urea/Allantoin/Vit E Acetate) 56 Gm Cream..g. 56 Gm TP BID Cetirizine Hcl 10 Mg Tablet 1 Tab PO DAILY [place] Senior Tablet (Multivitamin W-Minerals/Lutein) 1 Each Tablet 1 Each PO DAILY Caltrate Gummy Bites (Calcium Phosphate Trib/Vit D3) 1 Each Tab.chew 2 Each PO DAILY Baclofen 10 Mg Tablet 1 Tab PO DAILY Advair 250-50 Diskus (Fluticasone/Salmeterol) 1 Each Disk.w.dev 1 Inh IH BID Zocor (Simvastatin) 20 Mg Tablet 20 Mg PO DAILY Singulair Tablet (Montelukast Sodium) 10 Mg Tablet 10 Mg PO DAILY Vitals/I & O Vital Sign - Last 24 Hours 01/12/18 01/12/18 01/12/18 01/12/18 10:56 11:00 12:00 12:06 Temp 99.3 99.3 Pulse 129 110 110 Resp 16 18 B/P (MAP) 140/93 (109) 132/85 (101) 144/91 (108) Pulse Ox 95 91 96 96 O2 Delivery Room Air Room Air 01/12/18 01/12/18 01/12/18 01/12/18 12:30 13:57 14:09 15:00 Temp 98.6 97.7 98.6 97.7 Pulse 97 100 Resp 24 20 B/P (MAP) 144/86 (105) 111/77 (88) 121/81 (94) Pulse Ox 95 93 O2 Delivery Room Air Room Air Room Air 01/12/18 01/12/18 01/12/18 01/12/18 15:38 16:29 19:20 20:00 Temp 98.4 98.4 Pulse 94 Resp 20 B/P (MAP) 149/96 (113) Pulse Ox 97 O2 Delivery Room Air Room Air Room Air Room Air 01/12/18 01/12/18 01/13/18 01/13/18 20:39 23:17 03:40 07:15 Temp 98.1 98.1 99.0 98.1 98.1 99.0 Pulse 84 90 106 Resp 18 18 18 B/P (MAP) 136/88 (104) 140/92 (108) 136/92 (107) Pulse Ox 99 95 97 96 O2 Delivery Room Air Room Air Room Air Room Air 01/13/18 01/13/18 07:48 07:56 Pulse Ox 96 96 O2 Delivery Room Air Room Air Intake and Output 01/12/18 01/12/18 01/13/18 15:00 23:00 07:00 Intake Total 1000 ml 800 ml 550 ml Balance 1000 ml 800 ml 550 ml ROBERTO WARREN MD Jan 13, 2018 10:37
[2018-01-13] MEDS: chlorproMAZINE 25 MG TABLET PO SCH (10:40)
[2018-01-13 11:29] VITALS: BP 127/89
--- NOTE | 2018-01-13 13:29 | SSS ---
ADMIT DATE: 01/13/2018 CHIEF COMPLAINT: Hyperglycemia. HISTORY OF PRESENT ILLNESS: The patient is a 27-year-old female with insulin-dependent diabetes who was brought to the Emergency Room with the above complaint. She is developmentally disabled and lives in a [facility]cc. Her caregivers there apparently noticed her to have a significantly elevated blood sugar on the day of admission and brought her to the Emergency Department. Her initial glucose there was over 500 and she was admitted for further care. PAST MEDICAL HISTORY: Insulin-dependent diabetes mellitus type 2, bipolar mood disorder, asthma, GERD, irritable bowel syndrome, allergic rhinitis, developmental disability. PAST SURGICAL HISTORY: Cholecystectomy, ORIF left forearm. ALLERGIES: THE PATIENT IS ALLERGIC TO PENICILLINS, IODINE, AND SHELLFISH. HOME MEDICATIONS: This list may not be accurate, albuterol p.r.n., baclofen 10 mg daily, calcium daily, Zyrtec 10 mg daily, chlorpromazine unknown dosage daily, dicyclomine 10 mg p.r.n., Trulicity 1.5 mg subcutaneous weekly, Flonase nose spray daily, Advair 250/50 one puff b.i.d., gabapentin 1200 mg t.i.d., glimepiride 2 mg daily, Lantus insulin 100 units every morning, lithium 300 mg tablets 2 tablets at bedtime, lorazepam 2 mg at bedtime, metformin 1000 mg b.i.d., mirtazapine 30 mg at bedtime, Singulair 10 mg daily, simvastatin 20 mg daily, topiramate 100 mg t.i.d., trazodone 150 mg 2 at bedtime. FAMILY HISTORY: Noncontributory. SOCIAL HISTORY: The patient is single. She is disabled. She lives in a [facility]. She does not smoke cigarettes or drink alcohol. REVIEW OF SYSTEMS: The patient has had some subjective fevers recently. She has had some cough and postnasal drainage. She denies chest pain or palpitations. She denies abdominal pain, nausea or vomiting. She denies lower extremity edema. Her mood has been fairly good with her usual medication. PHYSICAL EXAMINATION: GENERAL: The patient is alert and oriented x 3, resting comfortably in bed, in no acute distress. HEENT: PERRL, EOMI, sclerae clear. Oropharynx: Mucous membranes moist. NECK: Supple, without lymphadenopathy. CHEST: Clear to auscultation with normal respiratory effort and good breath sounds throughout. CARDIOVASCULAR: Regular rhythm without murmur. ABDOMEN: Soft, nontender, normoactive bowel sounds are present. EXTREMITIES: Without edema. HOSPITAL COURSE: The patient has been receiving her usual medications since admission. Her blood sugars have been 100s-200s. She is eating 100% of her meals and has not complained of any nausea or emesis. A CT of the abdomen and pelvis at admission was within normal limits. She has been afebrile since admission. Lab at admission was unremarkable except for the initial hyperglycemia. Urine was without evidence of infection. [facility]. She is encouraged to continue medication per their recommendations with better attention to her diet and close followup at . The patient's chronic medical conditions including asthma, allergic rhinitis and bipolar mood disorder appear controlled with her usual medications. Her developmental disability does lead to some attention seeking behavior at times and her caregivers are aware of this. She appears stable for discharge home today. FINAL DIAGNOSES: 1. Hyperglycemia with insulin-dependent diabetes mellitus type 2. 2. Abdominal pain and malaise, resolved. 3. Bipolar mood disorder. 4. Asthma. 5. Allergic rhinitis. 6. Developmental disability. DISCHARGE MEDICATIONS: Remain the same as at admission. FOLLOWUP: With Dr. Robins as needed. [facility] with [facility] as advised. ROBERTO ROBINS MD DR: MARICARMEN/rohit JOB#: [id number] / [id number] BASIL
[2018-01-19] MEDS ORDERED: NON FORMULARY ITEM (Dulaglutide (Trulicity) 1.5 MG) SQ SCH (09:00)
== END 2018-01-13 13:48 | disposition home or self-care (01) | DRG 639 ==
LOC: ER 10:20 → 6 SOUTH 12:20
PROVIDERS: ADMIT Family Medicine; ATTEND Family Medicine
DX: E11.65 Type 2 diabetes mellitus with hyperglycemia (principal); D25.9 Leiomyoma of uterus, unspecified; F25.9 Schizoaffective disorder, unspecified; F31.9 Bipolar disorder, unspecified; J45.909 Unspecified asthma, uncomplicated; K21.9 Gastro-esophageal reflux disease without esophagitis; K58.9 Irritable bowel syndrome, unspecified; N20.0 Calculus of kidney; Z79.4 Long term (current) use of insulin; Z87.442 Personal history of urinary calculi; Z90.49 Acquired absence of other specified parts of digestive tract; Z88.8 Allergy status to other drugs, medicaments and biological substances; Z88.0 Allergy status to penicillin; Z91.013 Allergy to seafood
CPT/HCPCS: 36415; 71045; 74176; 80048; 80053; 81001; 82962; 83690; 83735; 84702; 85025; 87641; 94640; 96361; 96374; 96375; J1650; J1815; J3010; J7030; J7613; J7626; Q0161; 99285-25

== ENCOUNTER 2018-02-20 09:18 | Emergency (ER) | payer MEDICARE, OTHER ==
[~2018-02-20] VITALS: Ht 162.6 cm; Wt 73.5 kg
[~2018-02-20 09:18] MED LIST changes: +CHLO100T6 PO; +CICL6.6S TP; +GLIM2TAB2 PO; +OMEG1CAP6 PO; +POLY17PO29 PO; +SOD28CRE TP
[2018-02-20 09:45] LABS: BASO % 0 % (0-3); EOS % 1 % (0-3); HEMATOCRIT 36.2 % (36.0-47.0); HEMOGLOBIN 12.1 g/dL (12.0-15.5); LYMPH # 1.4 x10^3/uL (1.0-4.8); LYMPH % 26 % (24-48); MEAN CORPUSCULAR HEMOGLOBIN 29 pg (25-35); MEAN CORPUSCULAR HGB CONC 33 g/dL (31-37); MEAN CORPUSCULAR VOLUME 87 fL (79-100); MONO # 0.4 x10^3/uL (0.0-1.1); MONO % 7 % (0-9); NEUT # 3.6 x10^3uL (1.8-7.7); NEUT % 66 % (31-73); PLATELET COUNT 225 x10^3/uL (140-400); RED BLOOD COUNT 4.15 x10^6/uL (3.50-5.40); RED CELL DISTRIBUTION WIDTH 14.6 % (11.5-14.5); WHITE BLOOD COUNT 5.5 x10^3/uL (4.0-11.0)
[2018-02-20 09:56] LABS: BILIRUBIN,URINE NEGATIVE (NEG); CLARITY,URINE CLEAR; COLOR,URINE YELLOW; NITRITE,URINE NEGATIVE (NEG); PH,URINE 6.5; PROTEIN,URINE NEGATIVE (NEG-TRACE); UROBILINOGEN,URINE 0.2 mg/dL (0.2 mg/dL)
[2018-02-20] MEDS ORDERED: IV NORMAL SALINE 1000ML BAG 1,000 ML IV ONE (10:00)
[2018-02-20] MEDS ORDERED: fentaNYL PF VIAL 100 MCG/2 ML VIAL IV ONE (10:00)
[2018-02-20] MEDS ORDERED: ONDANSETRON PF 4 MG/2 ML VIAL. IV ONE (10:00)
[2018-02-20 10:03] LABS: BACTERIA,URINE 0 /HPF (0-FEW); RBC,URINE 0 /HPF (0-2); SQUAMOUS EPITHELIAL CELL,UR FEW /LPF; WBC,URINE OCC /HPF (0-4)
[2018-02-20 10:06] LABS: CALCIUM 8.5 mg/dL (8.5-10.1); CREATININE 0.9 mg/dL (0.6-1.0); GFR 75.1; POTASSIUM 4.4 mmol/L (3.5-5.1)
[2018-02-20 10:13] LABS: ALBUMIN 3.5 g/dL (3.4-5.0); ALBUMIN/GLOBULIN RATIO 1.1 (1.0-1.7); TOTAL BILIRUBIN 0.1 mg/dL (0.2-1.0); TOTAL PROTEIN 6.8 g/dL (6.4-8.2)
[2018-02-20] MEDS ORDERED: INSULIN REGULAR 100 UNIT/ML 3ML VIAL. IV ONE (10:15)
--- NOTE | 2018-02-20 10:38 | PHYS DOC ---
Past Medical History Past Medical History: Asthma, Bipolar, Diabetes-Type II, Kidney Stone, P.U.D., Other Additional Past Medical Histor: schizoaffective disorder, OVARIAN CYSTS, MILD MR Past Surgical History: Cholecystectomy, Other Additional Past Surgical Histo: kidney stone , pen removal from intestines Alcohol Use: None Drug Use: None Adult General Chief Complaint Chief Complaint: HYPERGLYCEMIA HPI HPI Patient is a 27 year old female referred from a halfway for hyperglycemia patient has had issues with blood sugar control for a long-standing basis today the blood sugar was over 300 and she complained of nausea as well as abdominal discomfort. This is her frequent similar complaint to her usual presentation including the last time I saw her. Symptoms are moderate slowly worsening with time no other exacerbating factors Review of Systems Review of Systems Constitutional: Denies fever or chills [] 99 Eyes: Denies change in visual acuity, redness, or eye pain [] HENT: Denies nasal congestion or sore throat [] Respiratory: Denies cough or shortness of breath [] Cardiovascular: No additional information not addressed in HPI [] GI: : Denies dysuria or hematuria [] Integument: Denies rash or skin lesions [] Neurologic: Denies headache, focal weakness or sensory changes [] Endocrine: All other systems were reviewed and found to be within normal limits, except as documented in this note. Current Medications Current Medications Current Medications Medications (Trade) Dose Ordered Sig/Meena Start Time Stop Time Status Last Admin Dose Admin Fentanyl Citrate (Fentanyl 2ml Vial) 50 mcg 1X ONCE 02/20/18 10:00 02/20/18 10:01 DC 02/20/18 10:03 50 MCG Insulin Human Regular (HumuLIN R VIAL) 10 unit 1X ONCE 02/20/18 10:15 02/20/18 10:21 DC 02/20/18 10:30 10 UNIT Ondansetron HCl (Zofran) 4 mg 1X ONCE 02/20/18 10:00 02/20/18 10:01 DC 02/20/18 10:02 4 MG Sodium Chloride 1,000 ml @ 1,000 mls/hr 1X ONCE 02/20/18 10:00 02/20/18 10:59 DC 02/20/18 10:02 1,000 MLS/HR Allergies Allergies Allergies Coded Allergies Type Severity Reaction Last Updated Verified Penicillins Allergy Intermediate 01/09/16 Yes iodine Allergy Intermediate 01/09/16 Yes shellfish derived Allergy Intermediate 01/09/16 Yes Physical Exam Physical Exam Constitutional: Well developed, appearance of mild MR CHANEY: Normocephalic, atraumatic, bilateral external ears normal, oropharynx dry , no oral exudates, nose normal. [] Eyes: PERRLA, EOMI, conjunctiva normal, no discharge. [] Neck: Normal range of motion, no tenderness, supple, no stridor. [] Cardiovascular:Heart rate regular rhythm, no murmur [] Lungs & Thorax: Bilateral breath sounds clear to auscultation [] Abdomen: Bowel sounds normal, soft, mild right upper quadrant and right lower quadrant tenderness similar to last time I examined her when she had a negative CT scan, no masses, no pulsatile masses. [] Skin: Warm, dry, no erythema, no rash. [] Back: No tenderness, no CVA tenderness. [] Extremities: No tenderness, no cyanosis, no clubbing, ROM intact, no edema. [] Neurologic: Alert and oriented X 3, normal motor function, normal sensory function, no focal deficits noted. [] Psychologic: Affect normal, judgement normal, mood normal. [] Current Patient Data Vital Signs Vital Signs Date Time Temp Pulse Resp B/P (MAP) Pulse Ox O2 Delivery O2 Flow Rate FiO2 02/20/18 11:14 98 27 117/76 (90) 96 Room Air 02/20/18 09:20 99.0 99.0 Lab Values Laboratory Tests Test 02/20/18 09:23 02/20/18 09:30 02/20/18 09:46 02/20/18 09:48 Glucose (Fingerstick) 362 mg/dL (70-99) H White Blood Count 5.5 x10^3/uL (4.0-11.0) Red Blood Count 4.15 x10^6/uL (3.50-5.40) Hemoglobin 12.1 g/dL (12.0-15.5) Hematocrit 36.2 % (36.0-47.0) Mean Corpuscular Volume 87 fL (79-100) Mean Corpuscular Hemoglobin 29 pg (25-35) Mean Corpuscular Hemoglobin Concent 33 g/dL (31-37) Red Cell Distribution Width 14.6 % (11.5-14.5) H Platelet Count 225 x10^3/uL (140-400) Neutrophils (%) (Auto) 66 % (31-73) Lymphocytes (%) (Auto) 26 % (24-48) Monocytes (%) (Auto) 7 % (0-9) Eosinophils (%) (Auto) 1 % (0-3) Basophils (%) (Auto) 0 % (0-3) Neutrophils # (Auto) 3.6 x10^3uL (1.8-7.7) Lymphocytes # (Auto) 1.4 x10^3/uL (1.0-4.8) Monocytes # (Auto) 0.4 x10^3/uL (0.0-1.1) Eosinophils # (Auto) 0.0 x10^3/uL (0.0-0.7) Basophils # (Auto) 0.0 x10^3/uL (0.0-0.2) Sodium Level 140 mmol/L (136-145) Potassium Level 4.4 mmol/L (3.5-5.1) Chloride Level 106 mmol/L (98-107) Carbon Dioxide Level 20 mmol/L (21-32) L Anion Gap 14 (6-14) Blood Urea Nitrogen 14 mg/dL (7-20) Creatinine 0.9 mg/dL (0.6-1.0) Estimated GFR (Cockcroft-Gault) 75.1 BUN/Creatinine Ratio 16 (6-20) Glucose Level 397 mg/dL (70-99) H Calcium Level 8.5 mg/dL (8.5-10.1) Total Bilirubin 0.1 mg/dL (0.2-1.0) L Aspartate Amino Transferase (AST) 15 U/L (15-37) Alanine Aminotransferase (ALT) 34 U/L (14-59) Alkaline Phosphatase 87 U/L (46-116) Total Protein 6.8 g/dL (6.4-8.2) Albumin 3.5 g/dL (3.4-5.0) Albumin/Globulin Ratio 1.1 (1.0-1.7) Lipase 217 U/L (73-393) Urine Collection Type Unknown Urine Color Yellow Urine Clarity Clear Urine pH 6.5 Urine Specific [place] 1.020 Urine Protein Negative mg/dL (NEG-TRACE) Urine Glucose (UA) >=1000 mg/dL (NEG) Urine Ketones (Stick) Negative mg/dL (NEG) Urine Blood Negative (NEG) Urine Nitrite Negative (NEG) Urine Bilirubin Negative (NEG) Urine Urobilinogen Dipstick 0.2 mg/dL (0.2 mg/dL) Urine Leukocyte Esterase Negative (NEG) Urine RBC 0 /HPF (0-2) Urine WBC Occ /HPF (0-4) Urine Squamous Epithelial Cells Few /LPF Urine Bacteria 0 /HPF (0-FEW) POC Urine HCG, Qualitative Hcg negative (Negative) Test 02/20/18 11:51 Glucose (Fingerstick) 119 mg/dL (70-99) H Laboratory Tests 02/20/18 09:30 Laboratory Tests 02/20/18 09:30 EKG EKG [] Radiology/Procedures Radiology/Procedures [] Course & Med Decision Making Course & Med Decision Making Pertinent Labs and Imaging studies reviewed. (See chart for details) []27-year-old female with history of poorly controlled diabetes as well as mental retardation history of frequent visits for same presenting with hyperglycemia with no anion gap she did have abdominal pain but this is a common complaint for her when her blood sugar is up last masses are her exam was the same T CT scan was normal I do not think that she is having an acute surgical process. Urine was negative patient was given fluids and regular insulin IV with improvement in her blood glucose she was safe to return to the halfway at this time advised to follow-up with primary care doctor for further management of her poorly controlled diabetes. Patient point of some wrist pain there were some mild tenderness noted on the ulnar aspect, XRAY NEGATIVE REPEAT BG 119 PT GIVEN MEAL D/C BACK TO FACILITY [facility] Disclaimer Dragon Disclaimer This electronic medical record was generated, in whole or in part, using a voice recognition dictation system. Departure Departure Impression: Primary Impression: Hyperglycemia Disposition: 01 HOME, SELF-CARE Condition: STABLE Referrals: ROBERTO WARREN MD (PCP) Patient Instructions: Hyperglycemia, [id number] SRINIVASA LEZAMA MD Feb 20, 2018 10:38
[2018-02-20 11:14] VITALS: BP 117/76
--- NOTE | 2018-02-20 12:08 | RAD ---
Examination: HAND RIGHT 3V, WRIST 3V RIGHT History: Pt states hit hand and wrist on desk hard yesterday. Pain to both. Comparison/Correlation: None Findings: Three-view exam of the right wrist and 3 view exam of the right hand were obtained. IV catheter is present and partially obscures evaluation. Joint spaces are normal. No acute fracture or bony destruction. Soft tissues are unremarkable. Carpal bones are normal. No radiopaque foreign body suspected. Impression: Normal right hand and wrist x-ray examinations. If occult process involving scaphoid bone is a persistent concern, interval follow-up would be recommended. Electronically signed by: Rashaad Dyson MD (02/20/2018 12:04 PM) [id number]
== END 2018-02-20 12:09 | disposition home or self-care (01) ==
LOC: ER 09:18
DX: E11.65 Type 2 diabetes mellitus with hyperglycemia (principal); M79.641 Pain in right hand; M25.531 Pain in right wrist; F31.9 Bipolar disorder, unspecified; J45.909 Unspecified asthma, uncomplicated; F20.9 Schizophrenia, unspecified; Z87.442 Personal history of urinary calculi; Z87.11 Personal history of peptic ulcer disease; Z88.0 Allergy status to penicillin; Z91.041 Radiographic dye allergy status; Z91.013 Allergy to seafood
CPT/HCPCS: 36415; 73110; 73130; 80053; 81001; 81025; 82962; 83690; 85025; 96361; 96374; 96375; 99285; J1815; J2405; J3010; J7030

== ENCOUNTER 2018-04-13 16:20 | Emergency (ER) | payer MEDICARE, OTHER ==
[~2018-04-13] VITALS: Ht 157.5 cm; Wt 73.5 kg
[~2018-04-13 16:20] MED LIST changes: -HYDR-2758 PO; +HYDR-2761 PO; +HYDR-3164 PO; -HYDR-971 PO
--- NOTE | 2018-04-13 16:45 | PHYS DOC ---
Past Medical History Past Medical History: Asthma, Bipolar, Diabetes-Type II, Kidney Stone, P.U.D., Other Additional Past Medical Histor: schizoaffective disorder, OVARIAN CYSTS, MILD MR Past Surgical History: Cholecystectomy, Other Additional Past Surgical Histo: kidney stone , pen removal from intestines Alcohol Use: None Drug Use: None Adult General Chief Complaint Chief Complaint: BLOOD SUGAR PROBLEM HPI HPI 27-year-old female presents to ER via EMS from local nursing home with complaints of abdominal pain and concerns for her blood sugar. Per EMS patient's blood sugar was 124. Patient reports this morning her blood sugar had been 55 and she was able to eat and drink juice area and per patient's previous medical record she has been seen frequently for history of control issues with her blood sugar. On 02/20/18 patient was in the ER with abdominal pain and elevated blood sugar in the 300s. Patient reports her abdominal pain is similar to previous episodes. Patient reports she had regular bowel movement today. She reports she' s had intermittent nausea denying any vomiting. Patient reports she took Tylenol at 8 AM this morning and has had improved symptoms. Patient reports she' s been urinating without symptoms. Patient states she is on the dip He she does not have monthly menses. Patient denies any fever or chills, chest pain or palpitations, shortness of air, or swelling in extremities. Review of Systems Review of Systems Constitutional: Denies fever or chills [] Eyes: Denies change in visual acuity, redness, or eye pain [] HENT: Denies nasal congestion or sore throat [] Respiratory: Denies cough or shortness of breath [] Cardiovascular: Denies CP/palpitations GI: Denies vomiting, bloody stools or diarrhea. Reports regular bowel movement this morning. Reports intermittent nausea : Denies dysuria or hematuria [] Musculoskeletal: Denies back pain or joint pain [] Integument: Denies rash, swelling or skin lesions [] Neurologic: Denies headache, focal weakness or sensory changes. Denies dizziness or lightheadedness Endocrine: Denies polyuria or polydipsia [] All other systems were reviewed and found to be within normal limits, except as documented in this note. Allergies Allergies Allergies Coded Allergies Type Severity Reaction Last Updated Verified Penicillins Allergy Intermediate 01/09/16 Yes iodine Allergy Intermediate 01/09/16 Yes shellfish derived Allergy Intermediate 01/09/16 Yes Physical Exam Physical Exam Constitutional: Well developed, well nourished, no acute distress, non-toxic appearance. Mild MR appearance- slow responses but is answering questions appropriately HENT: Normocephalic, atraumatic, mucous membranes pink/moist, no oral exudates, nose normal. [] Eyes: Pupils equal, conjunctiva normal, no discharge. [] Neck: Normal range of motion, no tenderness, supple, no stridor. [] Cardiovascular:Heart rate regular rhythm, no murmur [] Lungs & Thorax: Bilateral breath sounds clear to auscultation. Resp. equal/ nonlabored Abdomen: Bowel sounds normal, soft-no distention or rigidity, tenderness in mid abdomen with no focal area, no rebound tenderness, no masses, no pulsatile masses. [] Skin: Warm, dry, no erythema, no rash. [] Back: No tenderness, no CVA tenderness. [] Extremities: No tenderness, no cyanosis, no clubbing, ROM intact, no edema. [] Neurologic: Alert and oriented X 3, normal motor function, normal sensory function, no focal deficits noted. [] Psychologic: Affect normal, judgement normal, mood normal. [] Current Patient Data Vital Signs Vital Signs Date Time Temp Pulse Resp B/P (MAP) Pulse Ox O2 Delivery O2 Flow Rate FiO2 04/13/18 18:00 107 16 137/84 (101) 91 04/13/18 16:38 98.6 Room Air 98.6 Lab Values Laboratory Tests Test 04/13/18 16:28 04/13/18 16:49 04/13/18 16:52 04/13/18 17:35 Glucose (Fingerstick) 144 mg/dL (70-99) H Urine Collection Type Unknown Urine Color Yellow Urine Clarity Cloudy Urine pH 7.0 Urine Specific [place] 1.015 Urine Protein Negative mg/dL (NEG-TRACE) Urine Glucose (UA) Negative mg/dL (NEG) Urine Ketones (Stick) Negative mg/dL (NEG) Urine Blood Negative (NEG) Urine Nitrite Negative (NEG) Urine Bilirubin Negative (NEG) Urine Urobilinogen Dipstick 0.2 mg/dL (0.2 mg/dL) Urine Leukocyte Esterase Negative (NEG) Urine RBC 0 /HPF (0-2) Urine WBC 1-4 /HPF (0-4) Urine Squamous Epithelial Cells Mod /LPF Urine Amorphous Sediment Present /HPF Urine Bacteria 0 /HPF (0-FEW) Urine Hyaline Casts Occasional /HPF Urine Granular Casts Occasional /HPF Urine Mucus Mod /LPF POC Urine HCG, Qualitative Hcg negative (Negative) White Blood Count 8.5 x10^3/uL (4.0-11.0) Red Blood Count 4.82 x10^6/uL (3.50-5.40) Hemoglobin 13.9 g/dL (12.0-15.5) Hematocrit 41.6 % (36.0-47.0) Mean Corpuscular Volume 86 fL (79-100) Mean Corpuscular Hemoglobin 29 pg (25-35) Mean Corpuscular Hemoglobin Concent 34 g/dL (31-37) Red Cell Distribution Width 14.9 % (11.5-14.5) H Platelet Count 285 x10^3/uL (140-400) Neutrophils (%) (Auto) 68 % (31-73) Lymphocytes (%) (Auto) 25 % (24-48) Monocytes (%) (Auto) 6 % (0-9) Eosinophils (%) (Auto) 1 % (0-3) Basophils (%) (Auto) 0 % (0-3) Neutrophils # (Auto) 5.8 x10^3uL (1.8-7.7) Lymphocytes # (Auto) 2.1 x10^3/uL (1.0-4.8) Monocytes # (Auto) 0.5 x10^3/uL (0.0-1.1) Eosinophils # (Auto) 0.1 x10^3/uL (0.0-0.7) Basophils # (Auto) 0.0 x10^3/uL (0.0-0.2) Sodium Level 142 mmol/L (136-145) Potassium Level 4.2 mmol/L (3.5-5.1) Chloride Level 106 mmol/L (98-107) Carbon Dioxide Level 25 mmol/L (21-32) Anion Gap 11 (6-14) Blood Urea Nitrogen 10 mg/dL (7-20) Creatinine 0.7 mg/dL (0.6-1.0) Estimated GFR (Cockcroft-Gault) 100.4 BUN/Creatinine Ratio 14 (6-20) Glucose Level 86 mg/dL (70-99) Calcium Level 9.6 mg/dL (8.5-10.1) Magnesium Level 2.1 mg/dL (1.8-2.4) Total Bilirubin 0.1 mg/dL (0.2-1.0) L Aspartate Amino Transferase (AST) 17 U/L (15-37) Alanine Aminotransferase (ALT) 37 U/L (14-59) Alkaline Phosphatase 92 U/L (46-116) Total Protein 8.0 g/dL (6.4-8.2) Albumin 4.3 g/dL (3.4-5.0) Albumin/Globulin Ratio 1.2 (1.0-1.7) Lipase 209 U/L (73-393) Laboratory Tests 04/13/18 17:35 Laboratory Tests 04/13/18 17:35 EKG EKG [] Radiology/Procedures Radiology/Procedures [] Course & Med Decision Making Course & Med Decision Making Pertinent Labs reviewed. (See chart for details) 1850: Pt requesting discharge back to her nursing home as she is feeling better. There was a delay in getting results from lab- WBCs NL at 8.5 no left shift; initial accu check was 144 with patient's blood glucose on labs 86; anion gap 11 and lipase normal limits at 209. No UTI on UA with negative UCG and neg. ketones. Patient reports she is feeling better and is requesting home discharge. Will provide snacks as she is waiting for her ride. Patient remains nontoxic in appearance and in no visible distress during discharge discussion. Pt is ambulatory at bedside and denying any nausea. Dragon Disclaimer Dragon Disclaimer This electronic medical record was generated, in whole or in part, using a voice recognition dictation system. Departure Departure Impression: Primary Impression: Abdominal pain Disposition: HOME, SELF-CARE Condition: STABLE Referrals: ROBERTO WARREN MD (PCP) Patient Instructions: Abdominal Pain (Nonspecific) Additional Instructions: Follow-up with your primary care physician in 3-5 days for reevaluation sooner with any concerns. Continue home medications as previously prescribed. Continue to monitor blood sugar as done previously. ROBERT PRICE [employer] Apr 13, 2018 16:45
[2018-04-13 16:57] LABS: BILIRUBIN,URINE NEGATIVE (NEG); CLARITY,URINE CLOUDY; COLOR,URINE YELLOW; NITRITE,URINE NEGATIVE (NEG); PROTEIN,URINE NEGATIVE (NEG-TRACE); UROBILINOGEN,URINE 0.2 mg/dL (0.2 mg/dL)
[2018-04-13 17:06] LABS: GRANULAR CASTS,URINE OCCASIONAL /HPF; HYALINE CASTS, URINE OCCASIONAL /HPF; SQUAMOUS EPITHELIAL CELL,UR MOD /LPF
[2018-04-13 17:07] LABS: AMORPHOUS SEDIMENT,UR PRESENT /HPF; BACTERIA,URINE 0 /HPF (0-FEW); RBC,URINE 0 /HPF (0-2)
[2018-04-13 18:00] VITALS: BP 137/84
[2018-04-13 18:23] LABS: BASO % 0 % (0-3); EOS # 0.1 x10^3/uL (0.0-0.7); EOS % 1 % (0-3); HEMATOCRIT 41.6 % (36.0-47.0); HEMOGLOBIN 13.9 g/dL (12.0-15.5); LYMPH # 2.1 x10^3/uL (1.0-4.8); LYMPH % 25 % (24-48); MEAN CORPUSCULAR HEMOGLOBIN 29 pg (25-35); MEAN CORPUSCULAR HGB CONC 34 g/dL (31-37); MEAN CORPUSCULAR VOLUME 86 fL (79-100); MONO # 0.5 x10^3/uL (0.0-1.1); MONO % 6 % (0-9); NEUT # 5.8 x10^3uL (1.8-7.7); NEUT % 68 % (31-73); PLATELET COUNT 285 x10^3/uL (140-400); RED BLOOD COUNT 4.82 x10^6/uL (3.50-5.40); RED CELL DISTRIBUTION WIDTH 14.9 % (11.5-14.5); WHITE BLOOD COUNT 8.5 x10^3/uL (4.0-11.0)
[2018-04-13 18:42] LABS: CALCIUM 9.6 mg/dL (8.5-10.1); CREATININE 0.7 mg/dL (0.6-1.0); GFR 100.4; POTASSIUM 4.2 mmol/L (3.5-5.1)
[2018-04-13 18:49] LABS: ALBUMIN 4.3 g/dL (3.4-5.0); ALBUMIN/GLOBULIN RATIO 1.2 (1.0-1.7); MAGNESIUM 2.1 mg/dL (1.8-2.4); TOTAL BILIRUBIN 0.1 mg/dL (0.2-1.0)
== END 2018-04-13 20:10 | disposition home or self-care (01) ==
LOC: ER 16:20
DX: R10.9 Unspecified abdominal pain (principal); R11.0 Nausea; E11.9 Type 2 diabetes mellitus without complications; F31.9 Bipolar disorder, unspecified; J45.909 Unspecified asthma, uncomplicated; F25.9 Schizoaffective disorder, unspecified; Z87.442 Personal history of urinary calculi; Z90.49 Acquired absence of other specified parts of digestive tract; Z88.0 Allergy status to penicillin; Z91.041 Radiographic dye allergy status; Z91.013 Allergy to seafood
CPT/HCPCS: 36415; 80053; 81001; 81025; 82962; 83690; 83735; 85025; 99283

== ENCOUNTER 2018-12-08 19:31 | Inpatient (IN) | payer MEDICARE, MEDICAID ==
[~2018-12-08] VITALS: Ht 165.1 cm; Wt 77.3 kg
[~2018-12-08 19:31] MED LIST changes: +ALBU2.5V8 INH; -GABA600T2 PO; +GABA600T7 PO; +MONT10TA49 PO; -MONT10TA6 PO; -MONT10TA9 PO; -PANT40TA3 PO; +PANT40TA77 PO; -PROAIR HFA8.5 GM INH
[2018-12-08 19:45] LABS: BASO % 1 % (0-3); EOS # 0.1 x10^3/uL (0.0-0.7); EOS % 1 % (0-3); HEMOGLOBIN 12.7 g/dL (12.0-15.5); LYMPH # 1.9 x10^3/uL (1.0-4.8); LYMPH % 27 % (24-48); MEAN CORPUSCULAR HEMOGLOBIN 29 pg (25-35); MEAN CORPUSCULAR HGB CONC 33 g/dL (31-37); MEAN CORPUSCULAR VOLUME 88 fL (79-100); MONO # 0.6 x10^3/uL (0.0-1.1); MONO % 9 % (0-9); NEUT # 4.6 x10^3/uL (1.8-7.7); NEUT % 63 % (31-73); PLATELET COUNT 242 x10^3/uL (140-400); RED BLOOD COUNT 4.34 x10^6/uL (3.50-5.40); RED CELL DISTRIBUTION WIDTH 14.6 % (11.5-14.5); WHITE BLOOD COUNT 7.3 x10^3/uL (4.0-11.0)
[2018-12-08] MEDS ORDERED: IV NORMAL SALINE 1000ML BAG 1,000 ML IV ONE (19:45)
[2018-12-08 19:52] LABS: PROTHROMBIN TIME PATIENT 12.6 SEC (11.7-14.0)
[2018-12-08 19:55] LABS: BILIRUBIN,URINE NEGATIVE (NEG); CLARITY,URINE CLEAR; COLOR,URINE YELLOW; NITRITE,URINE NEGATIVE (NEG); PROTEIN,URINE NEGATIVE (NEG-TRACE); UROBILINOGEN,URINE 0.2 mg/dL (0.2 mg/dL)
[2018-12-08 19:55] LABS: CALCIUM 8.8 mg/dL (8.5-10.1); CREATININE 0.9 mg/dL (0.6-1.0); GFR 74.6; POTASSIUM 4.2 mmol/L (3.5-5.1)
[2018-12-08] MEDS ORDERED: ONDANSETRON PF 4 MG/2 ML VIAL. IV ONE (20:00)
[2018-12-08 20:01] LABS: ACETAMIN 12.13 mcg/ml (10-30); ETHANOL < 10 mg/dL (0-10); SALIC < 2.8 mg/dL (2.8-20.0)
[2018-12-08 20:02] LABS: AMPHETAMINE/METHAMPHETAMINE NEG (NEG); BARBITURATES NEG (NEG); BENZODIAZEPINES NEG (NEG); CANNABINOIDS NEG (NEG); COCAINE NEG (NEG); METHADONE NEG (NEG); OPIATES NEG (NEG); PHENCYCLIDINE NEG (NEG)
[2018-12-08 20:03] LABS: ALBUMIN 3.9 g/dL (3.4-5.0); TOTAL BILIRUBIN 0.2 mg/dL (0.2-1.0); TOTAL PROTEIN 7.8 g/dL (6.4-8.2)
[2018-12-08 20:06] LABS: SQUAMOUS EPITHELIAL CELL,UR MOD /LPF
[2018-12-08 20:07] LABS: BACTERIA,URINE FEW /HPF (0-FEW); RBC,URINE 0 /HPF (0-2)
--- NOTE | 2018-12-08 20:11 | PHYS DOC ---
Past Medical History Past Medical History: Asthma, Diabetes-Type II, Other Additional Past Medical Histor: DEVELOPMENTAL DELAYS Past Surgical History: No Surgical History Additional Past Surgical Histo: kidney stone , pen removal from intestines Alcohol Use: None Drug Use: None Adult General Chief Complaint Chief Complaint: SUICDAL IDEATION HPI HPI Patient is a 28 year old f biba from [facility], intentional overdose tried to commit suicide this occurred at 6 PM she feels dizzy and nauseous at this time She also banged her right hand on a door 210 units of lantus. normal dose is 80 units. in addition, 2600 mg tylenol, 100 mg of benadryl, 40 mg phenylephrine. She took a half bottle of a medication coughing medication that all these things and it Review of Systems Review of Systems Constitutional: Denies fever or chills [] Eyes: Denies change in visual acuity, redness, or eye pain [] HENT: Denies nasal congestion or sore throat [] Respiratory: Denies cough or shortness of breath [] Cardiovascular: No additional information not addressed in HPI [] Integument: Denies rash or skin lesions [] All other systems were reviewed and found to be within normal limits, except as documented in this note. Current Medications Current Medications Current Medications Medications (Trade) Dose Ordered Sig/Meena Start Time Stop Time Status Last Admin Dose Admin Lorazepam (Ativan Inj) 1 mg 1X ONCE 12/08/18 22:00 12/08/18 22:01 12/08/18 21:38 1 MG Ondansetron HCl (Zofran) 4 mg 1X ONCE 12/08/18 20:00 12/08/18 20:01 DC 12/08/18 20:00 4 MG Sodium Chloride 1,000 ml @ 75 mls/hr [id number] 12/08/18 21:15 12/09/18 21:14 12/08/18 21:15 75 MLS/HR Allergies Allergies Allergies Coded Allergies Type Severity Reaction Last Updated Verified Penicillins Allergy Intermediate 01/09/16 Yes iodine Allergy Intermediate 01/09/16 Yes shellfish derived Allergy Intermediate 01/09/16 Yes Physical Exam Physical Exam Constitutional: Well developed, developmental delay noted HENT: Normocephalic, atraumatic, bilateral external ears normal, oropharynx moist, no oral exudates, nose normal. [] Eyes: PERRLA, EOMI, conjunctiva normal, no discharge. [] Neck: Normal range of motion, no tenderness, supple, no stridor. [] Cardiovascular: Tachycardia no definite murmurs Lungs & Thorax: Bilateral breath sounds clear to auscultation [] Abdomen: Bowel sounds normal, soft, no tenderness, no masses, no pulsatile masses. [] Skin: Warm, dry, no erythema, no rash. [] Back: No tenderness, no CVA tenderness. [] Extremities: No tenderness, no cyanosis, no clubbing, ROM intact, no edema. [] Neurologic: Alert and oriented X 3, normal motor function, normal sensory function, no focal deficits noted. [] Psychologic: Patient is suicidal with an odd affect Current Patient Data Vital Signs Vital Signs Date Time Temp Pulse Resp B/P (MAP) Pulse Ox O2 Delivery O2 Flow Rate FiO2 12/08/18 21:47 24 126/72 (90) Room Air 12/08/18 21:31 101 12/08/18 19:31 99.4 97 99.4 Lab Values Laboratory Tests Test 12/08/18 19:34 12/08/18 19:45 12/08/18 20:20 12/08/18 21:24 White Blood Count 7.3 x10^3/uL (4.0-11.0) Red Blood Count 4.34 x10^6/uL (3.50-5.40) Hemoglobin 12.7 g/dL (12.0-15.5) Hematocrit 38.0 % (36.0-47.0) Mean Corpuscular Volume 88 fL (79-100) Mean Corpuscular Hemoglobin 29 pg (25-35) Mean Corpuscular Hemoglobin Concent 33 g/dL (31-37) Red Cell Distribution Width 14.6 % (11.5-14.5) H Platelet Count 242 x10^3/uL (140-400) Neutrophils (%) (Auto) 63 % (31-73) Lymphocytes (%) (Auto) 27 % (24-48) Monocytes (%) (Auto) 9 % (0-9) Eosinophils (%) (Auto) 1 % (0-3) Basophils (%) (Auto) 1 % (0-3) Neutrophils # (Auto) 4.6 x10^3/uL (1.8-7.7) Lymphocytes # (Auto) 1.9 x10^3/uL (1.0-4.8) Monocytes # (Auto) 0.6 x10^3/uL (0.0-1.1) Eosinophils # (Auto) 0.1 x10^3/uL (0.0-0.7) Basophils # (Auto) 0.0 x10^3/uL (0.0-0.2) Prothrombin Time 12.6 SEC (11.7-14.0) Prothrombin Time INR 1.0 (0.8-1.1) Sodium Level 138 mmol/L (136-145) Potassium Level 4.2 mmol/L (3.5-5.1) Chloride Level 103 mmol/L (98-107) Carbon Dioxide Level 19 mmol/L (21-32) L Anion Gap 16 (6-14) H Blood Urea Nitrogen 15 mg/dL (7-20) Creatinine 0.9 mg/dL (0.6-1.0) Estimated GFR (Cockcroft-Gault) 74.6 BUN/Creatinine Ratio 17 (6-20) Glucose Level 254 mg/dL (70-99) H Calcium Level 8.8 mg/dL (8.5-10.1) Total Bilirubin 0.2 mg/dL (0.2-1.0) Aspartate Amino Transferase (AST) 34 U/L (15-37) Alanine Aminotransferase (ALT) 62 U/L (14-59) H Alkaline Phosphatase 102 U/L (46-116) Total Protein 7.8 g/dL (6.4-8.2) Albumin 3.9 g/dL (3.4-5.0) Albumin/Globulin Ratio 1.0 (1.0-1.7) Salicylates Level < 2.8 mg/dL (2.8-20.0) L Salicylate Last Dose Date Salicylate Last Dose Time Acetaminophen Level 12.13 mcg/ml (10-30) Acetaminophen Last Dose Date Acetaminophen Last Dose Time Ethyl Alcohol Level < 10 mg/dL (0-10) Urine Collection Type U cath Urine Color Yellow Urine Clarity Clear Urine pH 5.0 Urine Specific [place] >=1.030 Urine Protein Negative mg/dL (NEG-TRACE) Urine Glucose (UA) Negative mg/dL (NEG) Urine Ketones (Stick) Negative mg/dL (NEG) Urine Blood Negative (NEG) Urine Nitrite Negative (NEG) Urine Bilirubin Negative (NEG) Urine Urobilinogen Dipstick 0.2 mg/dL (0.2 mg/dL) Urine Leukocyte Esterase Negative (NEG) Urine RBC 0 /HPF (0-2) Urine WBC 5-10 /HPF (0-4) Urine Squamous Epithelial Cells Mod /LPF Urine Bacteria Few /HPF (0-FEW) Urine Mucus Mod /LPF Urine Opiates Screen Neg (NEG) Urine Methadone Screen Neg (NEG) Urine Barbiturates Neg (NEG) Urine Phencyclidine Screen Neg (NEG) Urine Amphetamine/Methamphetamine Neg (NEG) Urine Benzodiazepines Screen Neg (NEG) Urine Cocaine Screen Neg (NEG) Urine Cannabinoids Screen Neg (NEG) Urine Ethyl Alcohol Neg (NEG) Glucose (Fingerstick) 194 mg/dL (70-99) H 161 mg/dL (70-99) H Laboratory Tests 12/08/18 19:34 Laboratory Tests 12/08/18 19:34 EKG EKG EKG shows a sinus tach rate 114 there is a RSR prime pattern in V1 and V2 but this is the same as EKG dated August 22, 2017 the QRS is 82 the QTC is 506 the QTC back in August was 503[] Radiology/Procedures Radiology/Procedures [] Course & Med Decision Making Course & Med Decision Making Pertinent Labs and Imaging studies reviewed. (See chart for details) []tox center: 8 pm information. big thing from this: lantus get bg every thirty minutes for about 8 hours. watch for 24 hours. admit for a few days. doses of other meds not impressive, get tylenol level. and get repeat every four hours. x two. (second tylenol level due to delayed gastric emptying with the benadryl). adjunct therapies for insulin, can give 125 solumedrol, can also give octreotide suppress endogenous insulin production helpful if type 2 diabetic. octreotide subq 100 mcg every 8-12 hours for an adult. consider adjunct therapies if bg is less than 100. get serial ekg for first six hours. c/f qrs widening with benadryl. but benadryl dose is really not concerning. i talked with dr mora, cfo controller for [facility]. admit to icu, noted recommendations from tox center above. pt is not yet medically cleared i placed routine am pat team consult 1:1 sitter while in er. repeat bg in er 190 then 160 range. pt ate a meal tray. gave ativan for feeling anxious. i added on mag level Critical care time was 45 minutes exclusive of procedures. Dragon Disclaimer Dragon Disclaimer This electronic medical record was generated, in whole or in part, using a voice recognition dictation system. Departure Departure Impression: Primary Impression: Overdose Disposition: ADMITTED INPATIENT Admitting Physician: Cindy Mora Condition: STABLE Referrals: ROBERTO WARREN MD (PCP) SRINIVASA LEZAMA MD Dec 08, 2018 20:11
[2018-12-08] MEDS: IV NORMAL SALINE 1000ML BAG 1,000 ML IV SCH (21:15)
[2018-12-08 22:55] LABS: ACETAMIN 2.8 mcg/ml (10-30)
[2018-12-08 23:00] VITALS: BP 122/86
[2018-12-08 23:15] VITALS: BP 128/82
[2018-12-08 23:30] VITALS: BP 126/86
[2018-12-09] VITALS (19 sets, daily range): BP systolic 92–137; BP diastolic 59–88
[2018-12-09] MEDS ORDERED: IV DEXTROSE 5% 1,000 ML IV SCH
[2018-12-09] MEDS ORDERED: MAGNESIUM SULFATE 1GM 100 ML IV ONE (01:00)
[2018-12-09] MEDS ORDERED: methylPREDNISolone SOD SUCC PF 125 MG/2 ML VIAL. IV ONE (01:00)
[2018-12-09] MEDS ORDERED: OCTREOTIDE 100 MCG/ML VIAL SQ ONE (01:00)
[2018-12-09] MEDS ORDERED: DEXTROSE 50% 25 GM / 50ML DISP.SYRIN. IV PRN ×2 (01:45→07:45)
[2018-12-09 02:18] LABS: ACETAMIN < 2 mcg/ml (10-30)
[2018-12-09 02:22] LABS: ALBUMIN 3.2 g/dL (3.4-5.0); CALCIUM 7.6 mg/dL (8.5-10.1); CREATININE 0.7 mg/dL (0.6-1.0); GFR 99.6; POTASSIUM 3.7 mmol/L (3.5-5.1); TOTAL BILIRUBIN 0.2 mg/dL (0.2-1.0); TOTAL PROTEIN 6.5 g/dL (6.4-8.2)
--- NOTE | 2018-12-09 05:46 | RAD ---
Right HAND, VIEWS 2 Indication: Trauma Comparison: Right hand, 3 views, February 20, 2018. Findings: Sensitivity decreased without third view. There is no acute fracture or dislocation. There is no bony erosion. Question negative ulnar variance. Mineralization is normal. There is no radiographically apparent soft tissue swelling or radiopaque foreign body. IMPRESSION: No acute fracture. Electronically signed by: Camden Caro MD (12/09/2018 5:42 AM) [id number]
[2018-12-09] MEDS ORDERED: HALO5TAB PO (07:23)
--- NOTE | 2018-12-09 07:24 | EKG ---
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
--- NOTE | 2018-12-09 07:25 | EKG ---
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
--- NOTE | 2018-12-09 07:32 | PDOC ---
PROGRESS NOTES Subjective Subjective Patient states she is hearing voices presently and still wishes to harm herself. Objective Objective Vital Signs Date Time Temp Pulse Resp B/P (MAP) Pulse Ox O2 Delivery O2 Flow Rate FiO2 12/09/18 07:00 98.8 91 16 106/68 (81) 96 Room Air 98.8 Intake and Output 12/09/18 07:00 Intake Total 350 ml Output Total 850 ml Balance -500 ml Intake Oral 350 ml Output Urine Total 850 ml # Voids 1 Physical Exam Abdomen: Normal bowel sounds, Soft, No tenderness Heart: Regular rate Extremities: No edema General: Alert, Oriented X3, No acute distress Lungs: Clear to auscultation Plan Plan of Care 1. Intentional overdose with bipolar mood disorder - [facility]. Patient has history of attention-seeking behavior. No psychiatric consultation available at [facility]. Will continue her usual medications while she is here and she will follow up with her usual Psychiatrist at [facility] after discharge. 2. DM2 with Lantus insulin overdose - FSBG good with D5IVF and one large dose of Solumedrol in ER. Hold all diabetic medications and follow FSBG. Anticipate patient will eat well today which will help. 3. asthma - stable, continue nebs. 4. developmental disability - continue supportive care. 5. shannan vaginitis - Diflucan x1 today. Comment Review of Relevant I have reviewed the following items wilbur (where applicable) has been applied. Labs Laboratory Tests Test 12/08/18 19:29 12/08/18 19:34 12/08/18 19:45 12/08/18 20:20 Glucose (Fingerstick) 229 mg/dL (70-99) 194 mg/dL (70-99) White Blood Count 7.3 x10^3/uL (4.0-11.0) Red Blood Count 4.34 x10^6/uL (3.50-5.40) Hemoglobin 12.7 g/dL (12.0-15.5) Hematocrit 38.0 % (36.0-47.0) Mean Corpuscular Volume 88 fL (79-100) Mean Corpuscular Hemoglobin 29 pg (25-35) Mean Corpuscular Hemoglobin Concent 33 g/dL (31-37) Red Cell Distribution Width 14.6 % (11.5-14.5) Platelet Count 242 x10^3/uL (140-400) Neutrophils (%) (Auto) 63 % (31-73) Lymphocytes (%) (Auto) 27 % (24-48) Monocytes (%) (Auto) 9 % (0-9) Eosinophils (%) (Auto) 1 % (0-3) Basophils (%) (Auto) 1 % (0-3) Neutrophils # (Auto) 4.6 x10^3/uL (1.8-7.7) Lymphocytes # (Auto) 1.9 x10^3/uL (1.0-4.8) Monocytes # (Auto) 0.6 x10^3/uL (0.0-1.1) Eosinophils # (Auto) 0.1 x10^3/uL (0.0-0.7) Basophils # (Auto) 0.0 x10^3/uL (0.0-0.2) Prothrombin Time 12.6 SEC (11.7-14.0) Prothromb Time International Ratio 1.0 (0.8-1.1) Sodium Level 138 mmol/L (136-145) Potassium Level 4.2 mmol/L (3.5-5.1) Chloride Level 103 mmol/L (98-107) Carbon Dioxide Level 19 mmol/L (21-32) Anion Gap 16 (6-14) Blood Urea Nitrogen 15 mg/dL (7-20) Creatinine 0.9 mg/dL (0.6-1.0) Estimated GFR (Cockcroft-Gault) 74.6 BUN/Creatinine Ratio 17 (6-20) Glucose Level 254 mg/dL (70-99) Calcium Level 8.8 mg/dL (8.5-10.1) Total Bilirubin 0.2 mg/dL (0.2-1.0) Aspartate Amino Transf (AST/SGOT) 34 U/L (15-37) Alanine Aminotransferase (ALT/SGPT) 62 U/L (14-59) Alkaline Phosphatase 102 U/L (46-116) Total Protein 7.8 g/dL (6.4-8.2) Albumin 3.9 g/dL (3.4-5.0) Albumin/Globulin Ratio 1.0 (1.0-1.7) Salicylates Level < 2.8 mg/dL (2.8-20.0) Salicylate Last Dose Date Salicylate Last Dose Time Acetaminophen Level 12.13 mcg/ml (10-30) Acetaminophen Last Dose Date Acetaminophen Last Dose Time Ethyl Alcohol Level < 10 mg/dL (0-10) Urine Collection Type U cath Urine Color Yellow Urine Clarity Clear Urine pH 5.0 Urine Specific Callahan >=1.030 Urine Protein Negative mg/dL (NEG-TRACE) Urine Glucose (UA) Negative mg/dL (NEG) Urine Ketones (Stick) Negative mg/dL (NEG) Urine Blood Negative (NEG) Urine Nitrite Negative (NEG) Urine Bilirubin Negative (NEG) Urine Urobilinogen Dipstick 0.2 mg/dL (0.2 mg/dL) Urine Leukocyte Esterase Negative (NEG) Urine RBC 0 /HPF (0-2) Urine WBC 5-10 /HPF (0-4) Urine Squamous Epithelial Cells Mod /LPF Urine Bacteria Few /HPF (0-FEW) Urine Mucus Mod /LPF Urine Opiates Screen Neg (NEG) Urine Methadone Screen Neg (NEG) Urine Barbiturates Neg (NEG) Urine Phencyclidine Screen Neg (NEG) Urine Amphetamine/Methamphetamine Neg (NEG) Urine Benzodiazepines Screen Neg (NEG) Urine Cocaine Screen Neg (NEG) Urine Cannabinoids Screen Neg (NEG) Urine Ethyl Alcohol Neg (NEG) Test 12/08/18 21:24 12/08/18 22:30 12/08/18 23:26 12/09/18 00:24 Glucose (Fingerstick) 161 mg/dL (70-99) 86 mg/dL (70-99) 99 mg/dL (70-99) Magnesium Level 1.6 mg/dL (1.8-2.4) Acetaminophen Level 2.8 mcg/ml (10-30) Acetaminophen Last Dose Date Unk Acetaminophen Last Dose Time Unk Test 12/09/18 01:21 12/09/18 01:50 12/09/18 01:58 12/09/18 02:24 Glucose (Fingerstick) 67 mg/dL (70-99) 150 mg/dL (70-99) 119 mg/dL (70-99) Sodium Level 140 mmol/L (136-145) Potassium Level 3.7 mmol/L (3.5-5.1) Chloride Level 109 mmol/L (98-107) Carbon Dioxide Level 20 mmol/L (21-32) Anion Gap 11 (6-14) Blood Urea Nitrogen 9 mg/dL (7-20) Creatinine 0.7 mg/dL (0.6-1.0) Estimated GFR (Cockcroft-Gault) 99.6 BUN/Creatinine Ratio 13 (6-20) Glucose Level 222 mg/dL (70-99) Calcium Level 7.6 mg/dL (8.5-10.1) Total Bilirubin 0.2 mg/dL (0.2-1.0) Aspartate Amino Transf (AST/SGOT) 19 U/L (15-37) Alanine Aminotransferase (ALT/SGPT) 54 U/L (14-59) Alkaline Phosphatase 88 U/L (46-116) Total Protein 6.5 g/dL (6.4-8.2) Albumin 3.2 g/dL (3.4-5.0) Albumin/Globulin Ratio 1.0 (1.0-1.7) Acetaminophen Level < 2 mcg/ml (10-30) Acetaminophen Last Dose Date Unk Acetaminophen Last Dose Time Unk Test 12/09/18 03:30 12/09/18 03:50 12/09/18 04:28 12/09/18 05:13 Glucose (Fingerstick) 103 mg/dL (70-99) 94 mg/dL (70-99) 89 mg/dL (70-99) Magnesium Level 2.1 mg/dL (1.8-2.4) Test 12/09/18 05:29 12/09/18 06:43 Glucose (Fingerstick) 130 mg/dL (70-99) 139 mg/dL (70-99) Laboratory Tests Test 12/08/18 19:29 12/08/18 19:34 12/08/18 19:45 12/08/18 20:20 Glucose (Fingerstick) 229 mg/dL (70-99) 194 mg/dL (70-99) White Blood Count 7.3 x10^3/uL (4.0-11.0) Red Blood Count 4.34 x10^6/uL (3.50-5.40) Hemoglobin 12.7 g/dL (12.0-15.5) Hematocrit 38.0 % (36.0-47.0) Mean Corpuscular Volume 88 fL (79-100) Mean Corpuscular Hemoglobin 29 pg (25-35) Mean Corpuscular Hemoglobin Concent 33 g/dL (31-37) Red Cell Distribution Width 14.6 % (11.5-14.5) Platelet Count 242 x10^3/uL (140-400) Neutrophils (%) (Auto) 63 % (31-73) Lymphocytes (%) (Auto) 27 % (24-48) Monocytes (%) (Auto) 9 % (0-9) Eosinophils (%) (Auto) 1 % (0-3) Basophils (%) (Auto) 1 % (0-3) Neutrophils # (Auto) 4.6 x10^3/uL (1.8-7.7) Lymphocytes # (Auto) 1.9 x10^3/uL (1.0-4.8) Monocytes # (Auto) 0.6 x10^3/uL (0.0-1.1) Eosinophils # (Auto) 0.1 x10^3/uL (0.0-0.7) Basophils # (Auto) 0.0 x10^3/uL (0.0-0.2) Prothrombin Time 12.6 SEC (11.7-14.0) Prothromb Time International Ratio 1.0 (0.8-1.1) Sodium Level 138 mmol/L (136-145) Potassium Level 4.2 mmol/L (3.5-5.1) Chloride Level 103 mmol/L (98-107) Carbon Dioxide Level 19 mmol/L (21-32) Anion Gap 16 (6-14) Blood Urea Nitrogen 15 mg/dL (7-20) Creatinine 0.9 mg/dL (0.6-1.0) Estimated GFR (Cockcroft-Gault) 74.6 BUN/Creatinine Ratio 17 (6-20) Glucose Level 254 mg/dL (70-99) Calcium Level 8.8 mg/dL (8.5-10.1) Total Bilirubin 0.2 mg/dL (0.2-1.0) Aspartate Amino Transf (AST/SGOT) 34 U/L (15-37) Alanine Aminotransferase (ALT/SGPT) 62 U/L (14-59) Alkaline Phosphatase 102 U/L (46-116) Total Protein 7.8 g/dL (6.4-8.2) Albumin 3.9 g/dL (3.4-5.0) Albumin/Globulin Ratio 1.0 (1.0-1.7) Salicylates Level < 2.8 mg/dL (2.8-20.0) Salicylate Last Dose Date Salicylate Last Dose Time Acetaminophen Level 12.13 mcg/ml (10-30) Acetaminophen Last Dose Date Acetaminophen Last Dose Time Ethyl Alcohol Level < 10 mg/dL (0-10) Urine Collection Type U cath Urine Color Yellow Urine Clarity Clear Urine pH 5.0 Urine Specific Callahan >=1.030 Urine Protein Negative mg/dL (NEG-TRACE) Urine Glucose (UA) Negative mg/dL (NEG) Urine Ketones (Stick) Negative mg/dL (NEG) Urine Blood Negative (NEG) Urine Nitrite Negative (NEG) Urine Bilirubin Negative (NEG) Urine Urobilinogen Dipstick 0.2 mg/dL (0.2 mg/dL) Urine Leukocyte Esterase Negative (NEG) Urine RBC 0 /HPF (0-2) Urine WBC 5-10 /HPF (0-4) Urine Squamous Epithelial Cells Mod /LPF Urine Bacteria Few /HPF (0-FEW) Urine Mucus Mod /LPF Urine Opiates Screen Neg (NEG) Urine Methadone Screen Neg (NEG) Urine Barbiturates Neg (NEG) Urine Phencyclidine Screen Neg (NEG) Urine Amphetamine/Methamphetamine Neg (NEG) Urine Benzodiazepines Screen Neg (NEG) Urine Cocaine Screen Neg (NEG) Urine Cannabinoids Screen Neg (NEG) Urine Ethyl Alcohol Neg (NEG) Test 12/08/18 21:24 12/08/18 22:30 12/08/18 23:26 12/09/18 00:24 Glucose (Fingerstick) 161 mg/dL (70-99) 86 mg/dL (70-99) 99 mg/dL (70-99) Magnesium Level 1.6 mg/dL (1.8-2.4) Acetaminophen Level 2.8 mcg/ml (10-30) Acetaminophen Last Dose Date Unk Acetaminophen Last Dose Time Unk Test 12/09/18 01:21 12/09/18 01:50 12/09/18 01:58 12/09/18 02:24 Glucose (Fingerstick) 67 mg/dL (70-99) 150 mg/dL (70-99) 119 mg/dL (70-99) Sodium Level 140 mmol/L (136-145) Potassium Level 3.7 mmol/L (3.5-5.1) Chloride Level 109 mmol/L (98-107) Carbon Dioxide Level 20 mmol/L (21-32) Anion Gap 11 (6-14) Blood Urea Nitrogen 9 mg/dL (7-20) Creatinine 0.7 mg/dL (0.6-1.0) Estimated GFR (Cockcroft-Gault) 99.6 BUN/Creatinine Ratio 13 (6-20) Glucose Level 222 mg/dL (70-99) Calcium Level 7.6 mg/dL (8.5-10.1) Total Bilirubin 0.2 mg/dL (0.2-1.0) Aspartate Amino Transf (AST/SGOT) 19 U/L (15-37) Alanine Aminotransferase (ALT/SGPT) 54 U/L (14-59) Alkaline Phosphatase 88 U/L (46-116) Total Protein 6.5 g/dL (6.4-8.2) Albumin 3.2 g/dL (3.4-5.0) Albumin/Globulin Ratio 1.0 (1.0-1.7) Acetaminophen Level < 2 mcg/ml (10-30) Acetaminophen Last Dose Date Unk Acetaminophen Last Dose Time Unk Test 12/09/18 03:30 12/09/18 03:50 12/09/18 04:28 12/09/18 05:13 Glucose (Fingerstick) 103 mg/dL (70-99) 94 mg/dL (70-99) 89 mg/dL (70-99) Magnesium Level 2.1 mg/dL (1.8-2.4) Test 12/09/18 05:29 12/09/18 06:43 Glucose (Fingerstick) 130 mg/dL (70-99) 139 mg/dL (70-99) Medications Current Medications Sodium Chloride 1,000 ml @ 1,000 mls/hr 1X ONCE IV Last administered on 12/08/18at 19:45; Start 12/08/18 at 19:45; Stop 12/08/18 at 20:44; Status DC Ondansetron HCl (Zofran) 4 mg 1X ONCE IV Last administered on 12/08/18at 20:00; Start 12/08/18 at 20:00; Stop 12/08/18 at 20:01; Status DC Sodium Chloride 1,000 ml @ 75 mls/hr [id number] IV Last administered on 12/08/18at 21:15; Start 12/08/18 at 21:15; Stop 12/09/18 at 21:14 Lorazepam (Ativan Inj) 1 mg 1X ONCE IV Last administered on 12/08/18at 21:38; Start 12/08/18 at 22:00; Stop 12/08/18 at 22:01; Status DC Dextrose 1,000 ml @ 100 mls/hr Q10H IV Last administered on 12/09/18at 00:00; Start 12/09/18 at 00:00 Methylprednisolone Sodium Succinate (SOLU-Medrol 125MG VIAL) 125 mg 1X ONCE IV Last administered on 12/09/18at 01:06; Start 12/09/18 at 01:00; Stop 12/09/18 at 01:01; Status DC Octreotide Acetate (SandoSTATIN) 100 mcg 1X ONCE SQ Last administered on 12/09/18at 01:06; Start 12/09/18 at 01:00; Stop 12/09/18 at 01:01; Status DC Magnesium Sulfate/ Dextrose 100 ml @ 100 mls/hr 1X ONCE IV Last administered on 12/09/18at 01:06; Start 12/09/18 at 01:00; Stop 12/09/18 at 01:59; Status DC Dextrose (Dextrose 50%-Water Syringe) 12.5 gm PRN Q15MIN PRN IV SEE COMMENTS Last administered on 12/09/18at 01:52; Start 12/09/18 at 01:45 Cetirizine HCl (ZyrTEC) 10 mg DAILY PO ; Start 12/09/18 at 09:00; Status UNV Dicyclomine HCl (Bentyl) 10 mg TIDAC PRN PO PAIN; Start 12/09/18 at 07:30; Status UNV Fluticasone Propionate (Flonase) 2 spray DAILY NS ; Start 12/09/18 at 09:00; Status UNV Montelukast Sodium (Singulair) 10 mg DAILY PO ; Start 12/09/18 at 09:00; Status UNV Non-Formulary Medication (Albuterol Sulfate (Ventolin Hfa Inhaler)) 2 puff Q4HRS INH ; Start 12/09/18 at 08:00; Status UNV Non-Formulary Medication (Chlorpromazine Hcl ) 100 mg DAILY PO ; Start 12/09/18 at 09:00; Status UNV Non-Formulary Medication (Chlorpromazine Hcl ) 200 mg TID PO ; Start 12/09/18 at 09:00; Status UNV Non-Formulary Medication (Fluticasone/ Salmeterol (Advair 250-50 Diskus)) 1 inh BID IH ; Start 12/09/18 at 09:00; Status UNV Non-Formulary Medication (Gabapentin ) 1,200 mg TID PO ; Start 12/09/18 at 09:00; Status UNV Non-Formulary Medication (Haloperidol ) 1 tab QHS PO ; Start 12/09/18 at 21:00; Status UNV Non-Formulary Medication (Ketotifen Fumarate (Zaditor)) 1 drop Q8HRS EACHEYE ; Start 12/09/18 at 14:00; Status UNV Non-Formulary Medication ([place] Carbonate ) 2 tab QHS PO ; Start 12/09/18 at 21:00; Status UNV Non-Formulary Medication (Lorazepam ) 1 tab QHS PO ; Start 12/09/18 at 21:00; Status UNV Non-Formulary Medication (Mirtazapine ) 1 tab QHS PO ; Start 12/09/18 at 21:00; Status UNV Non-Formulary Medication (Simvastatin (Zocor)) 20 mg DAILY PO ; Start 12/09/18 at 09:00; Status UNV Non-Formulary Medication (Topiramate ) 1 tab TID PO ; Start 12/09/18 at 09:00; Status UNV Non-Formulary Medication (Trazodone Hcl ) 2 tab QHS PO ; Start 12/09/18 at 21:00; Status UNV Active Scripts Active Haloperidol 5 Mg Tablet 1 Tab PO QHS 30 Days Bentyl (Dicyclomine Hcl) 10 Mg Capsule 10 Mg PO TIDAC PRN 30 Days Reported Miralax (Polyethylene Glycol 3350) 17 Gm Powd.pack 1 Packet PO DAILY Fish Oil 1,000 Mg Capsule (Searchlight-3 Fatty Acids/Fish Oil) 1 Each Capsule 1 Each PO BID Fish Oil 1,000 Mg Capsule ([place]-3 Fatty Acids/Fish Oil) 1 Each Capsule 1 Each PO DAILY Glimepiride 2 Mg Tablet 1 Tab PO DAILY Penlac (Ciclopirox) 6.6 Ml Solution 6.6 Ml TP DAILY Amlactin Ultra Body Cream (Sod Lactate/Amm Lact/Pot Lact) 28 Gm Cream..g. 28 Gm TP BID Chlorpromazine Hcl 100 Mg Tablet 100 Mg PO DAILY Chlorpromazine Hcl 200 Mg Tablet 200 Mg PO TID Basaglar Padillaikpen U-100 (Insulin Glargine,Hum.rec.anlog) 100 Unit/1 Ml Insuln.pen 100 Unit SQ EVERY AM Ventolin Hfa Inhaler (Albuterol Sulfate) 18 Gm Hfa.aer.ad 2 Puff INH Q4HRS Trulicity (Dulaglutide) 1.5 Mg/0.5 Ml Pen.injctr 1.5 Mg SQ WEEKLY Trazodone Hcl 150 Mg Tablet 2 Tab PO QHS Topiramate 100 Mg Tablet 1 Tab PO TID Mirtazapine 30 Mg Tablet 1 Tab PO QHS Metformin Hcl 1,000 Mg Tablet 1,000 Mg PO BIDWMEALS Lorazepam 2 Mg Tablet 1 Tab PO QHS [place] Carbonate 300 Mg Tablet.er 2 Tab PO QHS Zaditor (Ketotifen Fumarate) 5 Ml Drops 1 Drop EACHEYE Q8HRS Gabapentin 600 Mg Tablet 1,200 Mg PO TID Fluticasone Propionate Nasal [place] (Fluticasone Propionate) 16 Gm [place].susp 2 [place] NS DAILY Flexitol [place]el [place] Cream (Urea/Allantoin/Vit E Acetate) 56 Gm Cream..g. 56 Gm TP BID Cetirizine Hcl 10 Mg Tablet 1 Tab PO DAILY [place] Senior Tablet (Multivitamin W-Minerals/Lutein) 1 Each Tablet 1 Each PO DAILY Caltrate Gummy Bites (Calcium Phosphate Trib/Vit D3) 1 Each Tab.chew 2 Each PO DAILY Advair 250-50 Diskus (Fluticasone/Salmeterol) 1 Each Disk.w.dev 1 Inh IH BID Zocor (Simvastatin) 20 Mg Tablet 20 Mg PO DAILY Singulair Tablet (Montelukast Sodium) 10 Mg Tablet 10 Mg PO DAILY Vitals/I & O Vital Sign - Last 24 Hours 12/08/18 12/08/18 12/08/18 12/08/18 19:31 20:03 20:15 20:45 Temp 99.4 99.4 Pulse 114 109 108 110 Resp 18 20 24 20 B/P (MAP) 137/84 (101) 136/83 (100) 149/88 (108) 146/98 (114) Pulse Ox 97 O2 Delivery Room Air Room Air Room Air 12/08/18 12/08/18 12/08/18 12/08/18 21:00 21:18 21:31 21:47 Pulse 107 101 Resp 24 B/P (MAP) 133/89 (104) 137/91 (106) 143/90 (107) 126/72 (90) O2 Delivery Room Air Room Air Room Air Room Air 12/08/18 12/08/18 12/08/18 12/08/18 22:01 22:15 22:31 23:00 Temp 99.0 99.0 Pulse 99 105 96 100 Resp B/P (MAP) 136/89 (105) 143/93 (110) 143/93 (110) 122/86 (98) Pulse Ox 94 O2 Delivery Room Air Room Air Room Air 12/08/18 12/08/18 12/08/18 12/09/18 23:00 23:15 23:30 01:40 Temp 98.9 98.9 Pulse 98 104 103 Resp B/P (MAP) 128/82 (97) 126/86 (99) 119/81 (94) Pulse Ox 94 96 97 O2 Delivery Room Air Room Air Room Air Room Air 12/09/18 12/09/18 12/09/18 12/09/18 02:39 03:38 04:00 04:00 Temp 98.2 97.8 97.8 98.2 97.8 97.8 Pulse 94 87 83 Resp 18 B/P (MAP) 116/79 (91) 92/59 (70) 92/59 (70) Pulse Ox 97 94 96 O2 Delivery Room Air Room Air Room Air Room Air 12/09/18 12/09/18 12/09/18 05:38 06:00 07:00 Temp 98.6 98.8 98.6 98.8 Pulse 100 82 91 Resp 18 18 16 B/P (MAP) 122/80 (94) 122/80 (94) 106/68 (81) Pulse Ox 95 96 96 O2 Delivery Room Air Room Air Room Air Intake and Output 12/08/18 12/08/18 12/09/18 15:00 23:00 07:00 Intake Total 350 ml Output Total 850 ml Balance -500 ml ROBERTO WARREN MD Dec 09, 2018 07:32
[2018-12-09] MEDS ORDERED: NON FORMULARY ITEM (Albuterol Sulfate (Ventolin Hfa Inhaler) 2 PUFF) INH SCH (08:00)
--- NOTE | 2018-12-09 08:04 | HP ---
ADMIT DATE: 12/08/2018 CHIEF COMPLAINT: Intentional overdose. HISTORY OF PRESENT ILLNESS: The patient is a 28-year-old female with a long history of bipolar mood disorder who was brought to the Emergency Room with the above complaint. She had apparently reported to her caregivers that she had taken 200 units of Lantus insulin and also drank some nonprescription cough syrup from a bottle. When seen in the Emergency Room, her initial glucose level was 254. Tylenol level was not excessive. She was given 1 dose of Solu-Medrol and one dose of octreotide and admitted for further care. PAST MEDICAL HISTORY: Bipolar mood disorder; developmental disability; diabetes mellitus type 2, insulin dependent; asthma; gastroesophageal reflux disease; irritable bowel syndrome; allergic rhinitis. PAST SURGICAL HISTORY: Cholecystectomy, ORIF of left forearm. ALLERGIES: THE PATIENT IS ALLERGIC TO PENICILLINS, IODINE AND SHELLFISH. HOME MEDICATIONS: Albuterol p.r.n., Zyrtec 10 mg daily, chlorpromazine 100 mg q.a.m. and 200 mg t.i.d., Bentyl 10 mg p.r.n., Trulicity 1.5 mg subcutaneous weekly, Flonase nasal spray daily, Advair 250/50 one puff b.i.d., gabapentin 600 mg 2 tabs t.i.d., glimepiride 2 mg daily, haloperidol 5 mg at bedtime, Lantus insulin 100 units every morning, Zaditor eyedrops, lithium 300 mg ER tablet 2 tablets at bedtime, lorazepam 2 mg at bedtime, metformin 1000 mg b.i.d., mirtazapine 30 mg at bedtime, Singulair 10 mg daily, simvastatin 20 mg daily, topiramate 100 mg t.i.d., trazodone 150 mg 2 at bedtime. FAMILY HISTORY: Noncontributory. SOCIAL HISTORY: The patient is single. She is disabled. She lives in a fci. She does not smoke cigarettes or drink alcohol. REVIEW OF SYSTEMS: The patient denies recent illness. She denies chest pain or palpitations. Her asthma has been pretty good with her usual inhalers. She has some intermittent abdominal pain. She denies nausea, vomiting and she is hungry for breakfast at this time. She reports some recent vaginal itching. PHYSICAL EXAMINATION: GENERAL: The patient is alert and oriented x 3, resting comfortably in bed in no acute distress. HEENT: PERRL. EOMI. Sclerae clear. Oropharynx: Mucous membranes moist. NECK: Supple, without lymphadenopathy. CHEST: Clear to auscultation with normal respiratory effort and good breath sounds throughout. No cough during exam. CARDIOVASCULAR: Regular rhythm without murmur. ABDOMEN: Soft, nontender, normoactive bowel sounds are present. EXTREMITIES: Without edema. ASSESSMENT AND PLAN: 1. Intentional overdose with bipolar mood disorder. The patient has been stable overnight and is cooperative with her care. She does have a long history of attention seeking behavior. There is no psychiatric consultation available at [facility] We will continue her usual medications and she will follow up with her psychiatrist at [facility] after discharge. She continues to require continuous observation at this time for her safety. 2. Diabetes mellitus type 2 with Lantus insulin overdose. The patient's fingersticks have been good. Overnight she had D5 running. She did receive one large dose of Solu-Medrol, which should take care of any hypoglycemia she might have experienced. We will hold all of her diabetic medications and follow her fingersticks. Anticipate that she will eat today, which will also help. 3. Asthma. This is stable. Continue nebulized breathing treatments. 4. Developmental disability. The patient is at her baseline. Continue supportive care. 5. Li vaginitis. Diflucan x 1 today. ROBERTO WARREN MD DR: MARICARMEN/rohit JOB#: [id number] / [id number] BASIL
[2018-12-09] MEDS ORDERED: NON FORMULARY ITEM (Fluticasone/Salmeterol (Advair 250-50 Diskus) 1 INH) IH SCH (09:00)
[2018-12-09] MEDS: KETOTIFEN FUMARATE 0.025% OPHTH SOLUTION BOTTLE. OU SCH ×3 (09:00→21:00)
[2018-12-09] MEDS ORDERED: FLUCONAZOLE 100 MG TABLET. PO ONE (09:00)
[2018-12-09] MEDS: FLUTICASONE 50MCG/NASAL SPRAY 16GM BOTTLE. NS SCH (09:23)
[2018-12-09] MEDS: TOPIRAMATE 100 MG TABLET. PO SCH ×3 (09:29→21:26)
[2018-12-09] MEDS: MONTELUKAST SODIUM 10 MG TABLET. PO SCH (09:29)
[2018-12-09] MEDS: GABAPENTIN 400 MG CAPSULE. PO SCH ×3 (09:30→21:27)
[2018-12-09] MEDS: CETIRIZINE HCL 10 MG TABLET. PO SCH (09:31)
[2018-12-09] MEDS: chlorproMAZINE 25 MG TABLET PO SCH ×3 (09:32→21:26)
[2018-12-09] MEDS: INSULIN LISPRO 300 UNITS/3 ML INSULN.PEN. SQ SCH ×3 (09:36→19:19)
[2018-12-09] MEDS: IV NORMAL SALINE 1000ML BAG 1,000 ML IV SCH (10:35)
[2018-12-09] MEDS: ALBUTEROL SULFATE 2.5 MG/3 ML NEBU. NEB SCH ×4 (11:35→20:00)
[2018-12-09] MEDS: BUDESONIDE 0.5 MG/2 ML NEBU. NEB SCH ×2 (11:35→20:00)
[2018-12-09] MEDS: DICYCLOMINE HCL 10 MG CAPSULE PO PRN (12:49)
--- NOTE | 2018-12-09 15:16 | NUR ---
SS following for discharge planning. Pt is from [facility], . Per pt's RN pt overdosed on insulin and cough syrup. SS contacted [facility] and spoke with Follow Up Manager, Everardo Webb, to discuss events leading up to hospitalization. Everardo reported that staff gives pt medications and medications are locked up. He reported that pt is addicted to coming to the hospital and somehow got a hold of the medications at shift change. He reported that he is still investigating at this time. Michael from [facility] team called to visit with pt. Pt currently hearing voices. Pt reported that another [facility] resident named, Grisel, gave her the codes to the medication cabinet. Michael reported that pt is open at the [facility] and sees psychiatrist. Michael contacted pt's mother and pt's mother reported that pt needs to return to [facility] and needs to follow up with her treatment team at [facility] for medication adjustments. Michael following up with [facility] for appt.
--- NOTE | 2018-12-09 16:07 | NUR ---
Albuterol was given, dose not needed.
[2018-12-09] MEDS ORDERED: chlorproMAZINE 25 MG TABLET PO SCH (17:00)
[2018-12-09] MEDS ORDERED: MIRTAZAPINE 15 MG TABLET PO SCH (21:00)
[2018-12-09] MEDS ORDERED: LORazepam 1 MG TABLET PO SCH (21:00)
[2018-12-09] MEDS ORDERED: SIMVASTATIN 20 MG TABLET PO SCH (21:00)
[2018-12-09] MEDS ORDERED: LITHIUM CARBONATE 300 MG CAPSULE PO SCH (21:00)
[2018-12-09] MEDS ORDERED: traZODone 100 MG TABLET. PO SCH (21:00)
[2018-12-09] MEDS ORDERED: HALOPERIDOL 5 MG TABLET. PO SCH (21:00)
[2018-12-09] MEDS ORDERED: ALBUTEROL SULFATE 2.5 MG/3 ML NEBU. NEB PRN (21:45)
[2018-12-10 03:00] VITALS: BP 123/86
[2018-12-10 07:00] VITALS: BP 118/80
--- NOTE | 2018-12-10 07:24 | PDOC ---
PROGRESS NOTES Subjective Subjective Patient with some abdominal pain, decreased with Bentyl yesterday. Eating well. Objective Objective Vital Signs Date Time Temp Pulse Resp B/P (MAP) Pulse Ox O2 Delivery O2 Flow Rate FiO2 12/10/18 07:00 96.4 115 22 118/80 (93) 95 Room Air 96.4 Intake and Output 12/10/18 06:59 Intake Total 1247 ml Output Total 2210 ml Balance -963 ml Intake Oral 1247 ml Output Urine Total 2210 ml # Voids 8 # Bowel Movements 1 Physical Exam Abdomen: Normal bowel sounds, Soft, No tenderness Heart: Regular rate Extremities: No edema General: Alert, Oriented X3, No acute distress Lungs: Clear to auscultation Assessment Assessment Problems Medical Problems: (1) Asthma Status: Chronic (2) Li vaginitis Status: Acute (3) Diabetes mellitus type 2, insulin dependent Status: Chronic Plan Plan of Care 1. Intentional overdose with bipolar mood disorder - stable. Patient told staff yesterday she was still having some thoughts of hurting herself. Continue her usual medications from Psychiatry. Medically stable for discharge. If patient continues to report thoughts of self-harm caregivers can take her to [facility] or ER where psychiatric care is available. They are well aware of this as she has been seen at [facility] previously. 2. DM2 - no hypoglycemia since admission. Resume her usual medications. 3. asthma - stable. 4. developmental disability - at baseline. Continue supportive care. Comment Review of Relevant I have reviewed the following items wilbur (where applicable) has been applied. Labs Laboratory Tests Test 12/08/18 19:29 12/08/18 19:34 12/08/18 19:45 12/08/18 20:20 Glucose (Fingerstick) 229 mg/dL (70-99) 194 mg/dL (70-99) White Blood Count 7.3 x10^3/uL (4.0-11.0) Red Blood Count 4.34 x10^6/uL (3.50-5.40) Hemoglobin 12.7 g/dL (12.0-15.5) Hematocrit 38.0 % (36.0-47.0) Mean Corpuscular Volume 88 fL (79-100) Mean Corpuscular Hemoglobin 29 pg (25-35) Mean Corpuscular Hemoglobin Concent 33 g/dL (31-37) Red Cell Distribution Width 14.6 % (11.5-14.5) Platelet Count 242 x10^3/uL (140-400) Neutrophils (%) (Auto) 63 % (31-73) Lymphocytes (%) (Auto) 27 % (24-48) Monocytes (%) (Auto) 9 % (0-9) Eosinophils (%) (Auto) 1 % (0-3) Basophils (%) (Auto) 1 % (0-3) Neutrophils # (Auto) 4.6 x10^3/uL (1.8-7.7) Lymphocytes # (Auto) 1.9 x10^3/uL (1.0-4.8) Monocytes # (Auto) 0.6 x10^3/uL (0.0-1.1) Eosinophils # (Auto) 0.1 x10^3/uL (0.0-0.7) Basophils # (Auto) 0.0 x10^3/uL (0.0-0.2) Prothrombin Time 12.6 SEC (11.7-14.0) Prothromb Time International Ratio 1.0 (0.8-1.1) Sodium Level 138 mmol/L (136-145) Potassium Level 4.2 mmol/L (3.5-5.1) Chloride Level 103 mmol/L (98-107) Carbon Dioxide Level 19 mmol/L (21-32) Anion Gap 16 (6-14) Blood Urea Nitrogen 15 mg/dL (7-20) Creatinine 0.9 mg/dL (0.6-1.0) Estimated GFR (Cockcroft-Gault) 74.6 BUN/Creatinine Ratio 17 (6-20) Glucose Level 254 mg/dL (70-99) Calcium Level 8.8 mg/dL (8.5-10.1) Total Bilirubin 0.2 mg/dL (0.2-1.0) Aspartate Amino Transf (AST/SGOT) 34 U/L (15-37) Alanine Aminotransferase (ALT/SGPT) 62 U/L (14-59) Alkaline Phosphatase 102 U/L (46-116) Total Protein 7.8 g/dL (6.4-8.2) Albumin 3.9 g/dL (3.4-5.0) Albumin/Globulin Ratio 1.0 (1.0-1.7) Salicylates Level < 2.8 mg/dL (2.8-20.0) Salicylate Last Dose Date Salicylate Last Dose Time Acetaminophen Level 12.13 mcg/ml (10-30) Acetaminophen Last Dose Date Acetaminophen Last Dose Time Ethyl Alcohol Level < 10 mg/dL (0-10) Urine Collection Type U cath Urine Color Yellow Urine Clarity Clear Urine pH 5.0 Urine Specific [place] >=1.030 Urine Protein Negative mg/dL (NEG-TRACE) Urine Glucose (UA) Negative mg/dL (NEG) Urine Ketones (Stick) Negative mg/dL (NEG) Urine Blood Negative (NEG) Urine Nitrite Negative (NEG) Urine Bilirubin Negative (NEG) Urine Urobilinogen Dipstick 0.2 mg/dL (0.2 mg/dL) Urine Leukocyte Esterase Negative (NEG) Urine RBC 0 /HPF (0-2) Urine WBC 5-10 /HPF (0-4) Urine Squamous Epithelial Cells Mod /LPF Urine Bacteria Few /HPF (0-FEW) Urine Mucus Mod /LPF Urine Opiates Screen Neg (NEG) Urine Methadone Screen Neg (NEG) Urine Barbiturates Neg (NEG) Urine Phencyclidine Screen Neg (NEG) Urine Amphetamine/Methamphetamine Neg (NEG) Urine Benzodiazepines Screen Neg (NEG) Urine Cocaine Screen Neg (NEG) Urine Cannabinoids Screen Neg (NEG) Urine Ethyl Alcohol Neg (NEG) Test 12/08/18 21:24 12/08/18 22:30 12/08/18 23:26 12/09/18 00:24 Glucose (Fingerstick) 161 mg/dL (70-99) 86 mg/dL (70-99) 99 mg/dL (70-99) Magnesium Level 1.6 mg/dL (1.8-2.4) Acetaminophen Level 2.8 mcg/ml (10-30) Acetaminophen Last Dose Date Unk Acetaminophen Last Dose Time Unk Test 12/09/18 01:21 12/09/18 01:50 12/09/18 01:58 12/09/18 02:24 Glucose (Fingerstick) 67 mg/dL (70-99) 150 mg/dL (70-99) 119 mg/dL (70-99) Sodium Level 140 mmol/L (136-145) Potassium Level 3.7 mmol/L (3.5-5.1) Chloride Level 109 mmol/L (98-107) Carbon Dioxide Level 20 mmol/L (21-32) Anion Gap 11 (6-14) Blood Urea Nitrogen 9 mg/dL (7-20) Creatinine 0.7 mg/dL (0.6-1.0) Estimated GFR (Cockcroft-Gault) 99.6 BUN/Creatinine Ratio 13 (6-20) Glucose Level 222 mg/dL (70-99) Calcium Level 7.6 mg/dL (8.5-10.1) Total Bilirubin 0.2 mg/dL (0.2-1.0) Aspartate Amino Transf (AST/SGOT) 19 U/L (15-37) Alanine Aminotransferase (ALT/SGPT) 54 U/L (14-59) Alkaline Phosphatase 88 U/L (46-116) Total Protein 6.5 g/dL (6.4-8.2) Albumin 3.2 g/dL (3.4-5.0) Albumin/Globulin Ratio 1.0 (1.0-1.7) Acetaminophen Level < 2 mcg/ml (10-30) Acetaminophen Last Dose Date Unk Acetaminophen Last Dose Time Unk Test 12/09/18 03:30 12/09/18 03:50 12/09/18 04:28 12/09/18 05:13 Glucose (Fingerstick) 103 mg/dL (70-99) 94 mg/dL (70-99) 89 mg/dL (70-99) Magnesium Level 2.1 mg/dL (1.8-2.4) Test 12/09/18 05:29 12/09/18 06:43 12/09/18 08:00 12/09/18 11:00 Glucose (Fingerstick) 130 mg/dL (70-99) 139 mg/dL (70-99) 173 mg/dL (70-99) 221 mg/dL (70-99) Test 12/09/18 12:45 12/09/18 15:22 12/09/18 17:55 12/09/18 20:39 Glucose (Fingerstick) 206 mg/dL (70-99) 137 mg/dL (70-99) 147 mg/dL (70-99) 217 mg/dL (70-99) Laboratory Tests Test 12/09/18 08:00 12/09/18 11:00 12/09/18 12:45 12/09/18 15:22 Glucose (Fingerstick) 173 mg/dL (70-99) 221 mg/dL (70-99) 206 mg/dL (70-99) 137 mg/dL (70-99) Test 12/09/18 17:55 12/09/18 20:39 Glucose (Fingerstick) 147 mg/dL (70-99) 217 mg/dL (70-99) Medications Current Medications Sodium Chloride 1,000 ml @ 1,000 mls/hr 1X ONCE IV Last administered on 12/08/18at 19:45; Start 12/08/18 at 19:45; Stop 12/08/18 at 20:44; Status DC Ondansetron HCl (Zofran) 4 mg 1X ONCE IV Last administered on 12/08/18at 20:00; Start 12/08/18 at 20:00; Stop 12/08/18 at 20:01; Status DC Sodium Chloride 1,000 ml @ 75 mls/hr [id number] IV Last administered on 12/08/18at 21:15; Start 12/08/18 at 21:15; Stop 12/09/18 at 15:54; Status DC Lorazepam (Ativan Inj) 1 mg 1X ONCE IV Last administered on 12/08/18at 21:38; Start 12/08/18 at 22:00; Stop 12/08/18 at 22:01; Status DC Dextrose 1,000 ml @ 100 mls/hr Q10H IV Last administered on 12/09/18at 00:00; Start 12/09/18 at 00:00; Stop 12/09/18 at 15:54; Status DC Methylprednisolone Sodium Succinate (SOLU-Medrol 125MG VIAL) 125 mg 1X ONCE IV Last administered on 12/09/18at 01:06; Start 12/09/18 at 01:00; Stop 12/09/18 at 01:01; Status DC Octreotide Acetate (SandoSTATIN) 100 mcg 1X ONCE SQ Last administered on 12/09/18at 01:06; Start 12/09/18 at 01:00; Stop 12/09/18 at 01:01; Status DC Magnesium Sulfate/ Dextrose 100 ml @ 100 mls/hr 1X ONCE IV Last administered on 12/09/18at 01:06; Start 12/09/18 at 01:00; Stop 12/09/18 at 01:59; Status DC Dextrose (Dextrose 50%-Water Syringe) 12.5 gm PRN Q15MIN PRN IV SEE COMMENTS Last administered on 12/09/18 01:52; Start 12/09/18 at 01:45; Stop 12/09/18 at 12:48; Status DC Cetirizine HCl (ZyrTEC) 10 mg DAILY PO Last administered on 12/09/18 09:31; Start 12/09/18 at 09:00 Dicyclomine HCl (Bentyl) 10 mg PRN BFRMEAL PRN PO PAIN Last administered on 12/09/18 12:49; Start 12/09/18 at 07:30 Fluticasone Propionate (Flonase) 2 spray DAILY NS Last administered on 12/09/18 09:23; Start 12/09/18 at 09:00 Montelukast Sodium (Singulair) 10 mg DAILY PO Last administered on 12/09/18 09:29; Start 12/09/18 at 09:00 Non-Formulary Medication (Albuterol Sulfate (Ventolin Hfa Inhaler)) 2 puff Q4HRS INH ; Start 12/09/18 at 08:00; Stop 12/09/18 at 08:00; Status DC Chlorpromazine HCl (Thorazine) 100 mg DAILYWSUP PO Last administered on 12/09/18 18:30; Start 12/09/18 at 17:00 Chlorpromazine HCl (Thorazine) 200 mg TID@0800,1200,2000 PO Last administered on 12/09/18 21:26; Start 12/09/18 at 09:00 Non-Formulary Medication (Fluticasone/ Salmeterol (Advair 250-50 Diskus)) 1 inh BID IH ; Start 12/09/18 at 09:00; Stop 12/09/18 at 09:00; Status DC Gabapentin (Neurontin) 1,200 mg TID PO Last administered on 12/09/18 21:27; Start 12/09/18 at 09:00 Haloperidol (Haldol) 5 mg QHS PO Last administered on 12/09/18 21:26; Start 12/09/18 at 21:00 Ketotifen Fumarate (Zaditor) 1 drop TID OU Last administered on 12/09/18 21:00; Start 12/09/18 at 09:00 [place] Carbonate 600 mg QHS PO Last administered on 12/09/18 21:27; Start 12/09/18 at 21:00 Lorazepam (Ativan) 2 mg QHS PO Last administered on 12/09/18 21:26; Start 12/09/18 at 21:00 Mirtazapine (Remeron) 30 mg QHS PO Last administered on 12/09/18 21:27; Start 12/09/18 at 21:00 Simvastatin (Zocor) 20 mg HS PO Last administered on 12/09/18 21:27; Start 12/09/18 at 21:00 Topiramate (Topamax) 100 mg TID PO Last administered on 12/09/18 21:26; Start 12/09/18 at 09:00 Trazodone HCl (Desyrel) 300 mg QHS PO Last administered on 12/09/18 21:27; Start 12/09/18 at 21:00 Fluconazole (Diflucan) 150 mg 1X ONCE PO Last administered on 12/09/18 09:30; Start 12/09/18 at 09:00; Stop 12/09/18 at 09:01; Status DC Albuterol Sulfate (Ventolin Neb Soln) 2.5 mg Q4HRS NEB Last administered on 12/09/18 15:33; Start 12/09/18 at 08:00; Stop 12/09/18 at 21:37; Status DC Budesonide (Pulmicort) 0.5 mg RTBID NEB Last administered on 12/09/18 11:35; Start 12/09/18 at 08:00 Insulin Human Lispro (HumaLOG) 0-9 UNITS TIDWMEALS SQ Last administered on 12/09/18 12:58; Start 12/09/18 at 08:00 Dextrose (Dextrose 50%-Water Syringe) 12.5 gm PRN Q15MIN PRN IV SEE COMMENTS; Start 12/09/18 at 07:45 Albuterol Sulfate (Ventolin Neb Soln) 2.5 mg PRN Q4HRS PRN NEB SHORTNESS OF BREATH; Start 12/09/18 at 21:45 Active Scripts Active Haloperidol 5 Mg Tablet 1 Tab PO QHS 30 Days Bentyl (Dicyclomine Hcl) 10 Mg Capsule 10 Mg PO TIDAC PRN 30 Days Reported Miralax (Polyethylene Glycol 3350) 17 Gm Powd.pack 1 Packet PO DAILY Fish Oil 1,000 Mg Capsule ([place]-3 Fatty Acids/Fish Oil) 1 Each Capsule 1 Each PO DAILY Glimepiride 2 Mg Tablet 1 Tab PO DAILY Penlac (Ciclopirox) 6.6 Ml Solution 6.6 Ml TP DAILY Chlorpromazine Hcl 100 Mg Tablet 100 Mg PO DAILY Chlorpromazine Hcl 200 Mg Tablet 200 Mg PO TID Basaglar Kwikpen U-100 (Insulin Glargine,Hum.rec.anlog) 100 Unit/1 Ml Insuln.pen 100 Unit SQ EVERY AM Ventolin Hfa Inhaler (Albuterol Sulfate) 18 Gm Hfa.aer.ad 2 Puff INH Q4HRS Trulicity (Dulaglutide) 1.5 Mg/0.5 Ml Pen.injctr 1.5 Mg SQ WEEKLY Trazodone Hcl 150 Mg Tablet 2 Tab PO QHS Topiramate 100 Mg Tablet 1 Tab PO TID Mirtazapine 30 Mg Tablet 1 Tab PO QHS Metformin Hcl 1,000 Mg Tablet 1,000 Mg PO BIDWMEALS Lorazepam 2 Mg Tablet 1 Tab PO QHS [place] Carbonate 300 Mg Tablet.er 2 Tab PO QHS Zaditor (Ketotifen Fumarate) 5 Ml Drops 1 Drop EACHEYE Q8HRS Gabapentin 600 Mg Tablet 1,200 Mg PO TID Fluticasone Propionate Nasal [place] (Fluticasone Propionate) 16 Gm Porter.susp 2 Porter NS DAILY Cetirizine Hcl 10 Mg Tablet 1 Tab PO DAILY Caltrate Gummy Bites (Calcium Phosphate Trib/Vit D3) 1 Each Tab.chew 2 Each PO DAILY Advair 250-50 Diskus (Fluticasone/Salmeterol) 1 Each Disk.w.dev 1 Inh IH BID Zocor (Simvastatin) 20 Mg Tablet 20 Mg PO DAILY Singulair Tablet (Montelukast Sodium) 10 Mg Tablet 10 Mg PO DAILY Vitals/I & O Vital Sign - Last 24 Hours 12/09/18 12/09/18 12/09/18 12/09/18 08:00 08:00 09:00 10:00 Temp 98.8 99.4 98.4 98.8 99.4 98.4 Pulse 94 94 91 Resp 20 B/P (MAP) 116/81 (93) 137/88 (104) 107/76 (86) Pulse Ox 97 95 97 O2 Delivery Room Air Room Air Room Air Room Air 12/09/18 12/09/18 12/09/18 12/09/18 11:00 12:00 12:00 13:00 Temp 98.8 98.4 97.5 98.8 98.4 97.5 Pulse 103 96 97 Resp 23 B/P (MAP) 115/74 (88) 109/77 (88) 121/82 (95) Pulse Ox 98 97 97 O2 Delivery Room Air Room Air Room Air 12/09/18 12/09/18 12/09/18 12/09/18 14:00 14:00 15:00 15:34 Temp 98.4 98.8 98.6 98.4 98.8 98.6 Pulse 82 92 Resp 14 B/P (MAP) 104/66 (79) 106/76 (86) 97/87 (90) Pulse Ox 96 97 98 O2 Delivery Room Air Room Air 12/09/18 12/09/18 12/09/18 12/09/18 16:00 16:00 17:59 19:00 Temp 98.6 98.8 98.6 98.6 98.8 98.6 Pulse 95 95 Resp 20 B/P (MAP) 125/84 (98) 106/76 (86) 125/84 (98) 118/77 (91) Pulse Ox 97 97 97 O2 Delivery Room Air Room Air Room Air Room Air 12/09/18 12/09/18 12/10/18 12/10/18 19:05 23:00 03:00 07:00 Temp 98.2 98.4 96.4 98.2 98.4 96.4 Pulse 88 95 115 Resp 22 B/P (MAP) 104/61 (75) 123/86 (98) 118/80 (93) Pulse Ox 97 96 95 O2 Delivery Room Air Room Air Room Air Room Air Intake and Output 12/09/18 12/09/18 12/10/18 14:59 22:59 06:59 Intake Total 827 ml 360 ml 60 ml Output Total 1760 ml 450 ml Balance -933 ml -90 ml 60 ml ROBERTO WARREN MD Dec 10, 2018 07:24
[2018-12-10] MEDS: DICYCLOMINE HCL 10 MG CAPSULE PO PRN (07:28)
--- NOTE | 2018-12-10 07:56 | DS ---
DATE OF DISCHARGE: 12/10/2018 CHIEF COMPLAINT: Intentional overdose. HISTORY OF PRESENT ILLNESS: The patient is a 28-year-old female with a long history of bipolar mood disorder, who was brought to the Emergency Room with the above complaint. She had apparently reported to her caregivers that she had taken 200 units of Lantus insulin and also drank some nonprescription cough syrup from a bottle. When seen in the Emergency Room, her initial glucose level was 254. Tylenol level was not excessive. She was given 1 dose of Solu-Medrol and 1 dose of octreotide and admitted for further care. HOSPITAL COURSE: The patient was started on D5 IV fluids to avoid hypoglycemia. Her diabetic medications were all held. Her blood sugar reached a low of 67 early in the morning after admission. It has improved since then and she has had no further low glucose. She has been eating well and the D5 IV fluids were discontinued yesterday morning. She is medically stable for discharge today. The patient has bipolar mood disorder and developmental disability. She has a history of chronic attention-seeking behaviors and suicidal gestures. She sees Psychiatry at [facility] and is on multiple medications from them. She resides in a snf. Her usual psychiatric medications were continued during her hospital stay. She remained calm and cooperative with her care. She does still state at times that she has thoughts of harming herself, but has not made any attempts at self-harm during her hospital stay. She will be discharged to her usual snf today. Her caregivers are well aware that they can take her to [facility] Emergency Room or Emergency Room at any time where psychiatric care is available for her. An appointment has been made for her at [facility]. The patient's other chronic medical conditions including asthma and allergies have been stable and her usual medications are continued for these. FINAL DIAGNOSES: 1. Intentional overdose. 2. Bipolar mood disorder. 3. Developmental disability. 4. Diabetes mellitus type 2, insulin dependent. 5. Asthma. DISCHARGE MEDICATIONS: Albuterol p.r.n., calcium daily, Zyrtec 10 mg daily, chlorpromazine 200 mg t.i.d., chlorpromazine 100 mg q.a.m., dicyclomine 10 mg t.i.d. p.r.n. Trulicity 1.5 mg subcutaneous weekly, Flonase nasal spray daily, Advair 250/50 one puff b.i.d., gabapentin 600 mg 2 tablets t.i.d., glimepiride 2 mg daily, haloperidol 5 mg at bedtime, Lantus insulin 100 units q.a.m., lithium 300 mg ER tablet 2 tablets at bedtime, lorazepam 2 mg at bedtime, metformin 1000 mg b.i.d., mirtazapine 30 mg at bedtime, Singulair 10 mg daily, simvastatin 20 mg daily, topiramate 100 mg t.i.d., trazodone 150 mg 2 at bedtime. FOLLOWUP: Followup is with Dr. Robins as needed. Follow up with [facility] as needed. ROBERTO ROBINS MD DR: MARICARMEN/rohit JOB#: [id number] / [id number] BASIL
[2018-12-10] MEDS: BUDESONIDE 0.5 MG/2 ML NEBU. NEB SCH (08:02)
[2018-12-10] MEDS: chlorproMAZINE 25 MG TABLET PO SCH ×2 (08:17→12:23)
[2018-12-10] MEDS: GABAPENTIN 400 MG CAPSULE. PO SCH (08:17)
[2018-12-10] MEDS: MONTELUKAST SODIUM 10 MG TABLET. PO SCH (08:17)
[2018-12-10] MEDS: CETIRIZINE HCL 10 MG TABLET. PO SCH (08:17)
[2018-12-10] MEDS: TOPIRAMATE 100 MG TABLET. PO SCH (08:18)
[2018-12-10] MEDS: FLUTICASONE 50MCG/NASAL SPRAY 16GM BOTTLE. NS SCH (08:19)
[2018-12-10] MEDS: KETOTIFEN FUMARATE 0.025% OPHTH SOLUTION BOTTLE. OU SCH (08:22)
[2018-12-10] MEDS: INSULIN LISPRO 300 UNITS/3 ML INSULN.PEN. SQ SCH ×2 (08:25→12:30)
--- NOTE | 2018-12-10 10:50 | NUR ---
SS following up with discharge planning. Discharge orders for return to [facility] received. SS contacted Nini from [facility], , and discussed discharge. Nini coming to hospital in next hour and a half to picker/puller pt. SS faxed discharge paperwork to [facility] pharmacy, . Pt has a med appointment with Dr. Alcaraz on 12/16/2018. Pt's RN and pt's mother notified. Packet placed on chart.
--- NOTE | 2018-12-10 12:44 | NUR ---
Discharge Note: Patient was discharged back to her care home where she resides. Patients IV's was discontinued without any complications per CAN. Patient and guardian aware of discharge plans. Patient discharge medications were faxed over to [facility] pharmacy. Report given to Nini. Patient took all per discharge instruction/summary, follow-ups and educational material to her facility. Patient was picked up by facilities petrol tanker driver. JALEN Dumont accompanied patient out to the main entrance.
== END 2018-12-10 13:00 | disposition home or self-care (01) | DRG 918 ==
LOC: ER 19:31 → 1 WEST ICU 20:50 → 5 NORTH 12-09 18:07
PROVIDERS: ADMIT Family Medicine; ATTEND Family Medicine
DX: T38.3X2A Poisoning by insulin and oral hypoglycemic [antidiabetic] drugs, intentional self-harm, initial encounter (principal); E11.9 Type 2 diabetes mellitus without complications; J45.909 Unspecified asthma, uncomplicated; B37.3 Candidiasis of vulva and vagina; F31.9 Bipolar disorder, unspecified; K21.9 Gastro-esophageal reflux disease without esophagitis; K58.9 Irritable bowel syndrome, unspecified; Y92.89 Other specified places as the place of occurrence of the external cause; Z79.4 Long term (current) use of insulin; Z87.442 Personal history of urinary calculi; Z79.899 Other long term (current) drug therapy; Z91.041 Radiographic dye allergy status; Z88.0 Allergy status to penicillin; Z91.013 Allergy to seafood; Z90.49 Acquired absence of other specified parts of digestive tract
CPT/HCPCS: 36415; 73120; 80053; 80307; 80329; 81001; 82962; 83735; 85025; 85610; 87086; 87641; 93005; 94640; 96361; 96365; 96375; G0480; J1815; J2060; J2354; J2405; J2930; J3475; J7030; J7042; J7613; J7626; Q0161; 99285-25

== ENCOUNTER → 2020-11-23 | Outpatient (CLI) | payer MEDICAID ==
[~2020-11-23] MED LIST changes: -GLIM2TAB2 PO; +GLIM2TAB7 PO; +HALO5TAB PO; +IBUP-1815 PO; -IBUP100O25 PO; +MIRT-8 PO; -MIRT30TA3 PO; +NAPR-699 PO; -NAPR250T6 PO; -OLOP2.5D EACHEYE; +OLOP2.5D12 EACHEYE; -RISP2TAB3 PO; +RISP2TAB78 PO; -RISP3TAB3 PO; +RISP3TAB56 PO; +SIMV10TA15 PO; -SIMV10TA3 PO
--- NOTE | 2020-11-23 12:47 | RAD ---
PQRS Compliance Statement: One or more of the following individualized dose reduction techniques were utilized for this examinat ion: 1. Automated exposure control 2. Adjustment of the mA and/or kV according to patient size 3. Use of iterative reconstruction technique CT abdomen/pelvis without contrast 11/23/2020 10:44 AM INDICATION: Lower abdominal pain COMPARISON: CT abdomen/pelvis 01/12/2018 TECHNIQUE: Multiple axial CT images of the abdomen and pelvis were obtained without intravenous contr ast. Coronal and sagittal reformats are provided. FINDINGS: Lung bases are clear. Heart size within normal limits. Evaluation of solid abdominal viscera is limit ed by lack of intravenous contrast. Cholecystectomy. Liver, spleen, adrenal glands and pancreas are n ormal in appearance. The abdominal aorta is normal in course and caliber. There are no pathologically enlarged lymph nodes in the abdomen and pelvis. There is no abdominal free fluid. There is no free i ntraperitoneal air. Moderate amount of stool is noted throughout the colon. No bowel obstruction or i nflammation. The appendix is not definitively visualized. No pericecal inflammatory changes are ident ified. 2 mm nonobstructing calculus identified in the inferior pole the right kidney. 1 mm nonobstructing ca lculus identified in inferior pole left kidney. No hydronephrosis or contour deforming renal mass. Ur inary bladder is within normal limits given degree of distention. 0.6 cm peripheral calcified nodular component identified along the left adnexa. Follicular changes are identified within the left ovary. Uterus is normal in appearance. No suspicious osseous abnormality. IMPRESSION: Moderate stool burden throughout the colon. Appendix not definitively visualized although there is no adjacent inflammatory changes along the cecum. Nonobstructed bowel gas pattern. There is a calcified nodular component of the left ovary measuring 0.6 cm, nonspecific. Sonographic e valuation could be of benefit for further evaluation. Electronically signed by: Gabbi Swift MD (11/23/2020 12:45 PM) [id number]
== END ==
LOC: CT 10:34
PROVIDERS: ATTEND Family Medicine
DX: N20.0 Calculus of kidney (principal); N83.8 Other noninflammatory disorders of ovary, fallopian tube and broad ligament; Z90.49 Acquired absence of other specified parts of digestive tract
CPT/HCPCS: 74176